=== PATIENT | male | born 1955 | race Caucasian/White ===

== ENCOUNTER → 2017-08-20 | Outpatient (CLI) | payer MEDICARE, OTHER ==
[~2017-08-20] MED LIST: ACET325 PO; ALUM320SU PO; AMLO10 PO; ASPI81CH PO; ASPI81EC PO; ATOR40TA; ATOR40TA PO; Adalat Cc30 MG PO; Azor 10-20 MG1 EACH; BP MED; Bystolic10 MG PO; CLON.1 PO; CLON.2 PO; CLON.3; CLOP75 PO; DOCU100 PO; ESZO3 PO; FAMO40 PO; FENO145 PO; FURO20 PO; FURO80 PO; Fenofibrate134 MG PO; HYDCHL25 PO; HYDRA50 PO; INSULANPEN SC; K-Dur 20 meq T20 MEQ PO; K-Dur20 MEQ PO; LEVE500 PO; LEVEMIR FL100 UNIT/1 SC; LEVSOD50 PO; LISHYD2012 PO; LISI20 PO; LISI5 PO; LORA.5 PO; LORA1SY; METF500 PO; METO50ER PO; METOPROLOL TA37.5 MG PO; Micro-K10 MEQ PO; NEBI10 PO; NEBI5 PO; NIFE10 PO; NIFE60ER PO; NIFE90ER PO; ONDA4ODT MM; OXYB5 PO; POTCHL10ER PO; POTCHL20ER PO; Pacerone100 MG PO; Q-Tussin100 MG/5 M; QUET25 PO; ROSU10TA PO; SENN187; SERT50 PO; SPIR25 PO; TEMA30 PO; TERA5; TERA5 PO; TRAM50 PO; TRAZ100 PO; TRAZ150T57 PO; Zofran Odt8 MG SL
== END | disposition home or self-care (01) ==
LOC: LAB UVN 12:54
PROVIDERS: Family Medicine
DX: A08.11 Acute gastroenteropathy due to Norwalk agent (principal)
CPT/HCPCS: 87798

== ENCOUNTER 2017-08-25 13:12 | Emergency (ER) | payer MEDICARE, OTHER ==
[~2017-08-25] VITALS: Ht 167.6 cm; Wt 78.9 kg
[~2017-08-25 13:12] MED LIST changes: -ACET325 PO; -ALUM320SU PO; -AMLO10 PO; -ATOR40TA; -Azor 10-20 MG1 EACH; -DOCU100 PO; -FENO145 PO; -Fenofibrate134 MG PO; -HYDCHL25 PO; -LORA1SY; -NEBI5 PO; -NIFE10 PO; -ONDA4ODT MM; -POTCHL10ER PO; -Pacerone100 MG PO; -Q-Tussin100 MG/5 M; -QUET25 PO; -SENN187; -SERT50 PO; -SPIR25 PO; -TERA5; -TRAM50 PO; -Zofran Odt8 MG SL
[2017-08-25] MEDS ORDERED: ATOR40TA (14:07)
[2017-08-25] MEDS ORDERED: ASPI81CH PO (14:07)
[2017-08-25] MEDS ORDERED: CLOP75 PO (14:08)
[2017-08-25] MEDS ORDERED: LORA1SY (14:09)
[2017-08-25] MEDS ORDERED: FAMO40 PO (14:09)
[2017-08-25] MEDS ORDERED: HYDCHL25 PO (14:09)
[2017-08-25] MEDS ORDERED: LEVSOD50 PO (14:09)
[2017-08-25] MEDS ORDERED: POTCHL10ER PO (14:10)
[2017-08-25] MEDS ORDERED: OXYB5 PO (14:10)
[2017-08-25] MEDS ORDERED: NIFE60ER PO (14:10)
[2017-08-25] MEDS ORDERED: SPIR25 PO (14:11)
[2017-08-25] MEDS ORDERED: QUET25 PO (14:11)
[2017-08-25] MEDS ORDERED: SENN187 (14:11)
[2017-08-25] MEDS ORDERED: TERA5 (14:11)
[2017-08-25] MEDS ORDERED: SERT50 PO (14:13)
[2017-08-25] MEDS ORDERED: LEVE500 PO (14:23)
[2017-08-25] MEDS ORDERED: NEBI5 PO (14:23)
[2017-08-25] MEDS ORDERED: LISI20 PO (14:23)
[2017-08-25] MEDS ORDERED: CLON.1 PO (14:24)
[2017-08-25] MEDS ORDERED: HYDRA50 PO (14:24)
[2017-08-25 14:52] LABS: BASOPHILS ABSOLUTE AUTO 0.03 K/mm3 (0.00-0.23); BASOPHILS PERCENT AUTO 0 % (0-2); EOSINOPHILS ABSOLUTE AUTO 0.35 K/mm3 (0.00-0.68); EOSINOPHILS PERCENT AUTO 5 % (0-6); Hematocrit 46.1 % (37.0-53.0); Hemoglobin 15.2 g/dL (13.5-17.5); IMMATURE GRAN ABSOLUTE AUTO 0.03 K/mm3 (0.00-0.10); IMMATURE GRAN PERCENT AUTO 0 % (0-1); LYMPHOCYTES ABSOLUTE AUTO 1.21 K/mm3 (0.84-5.20); LYMPHOCYTES PERCENT AUTO 16 % (21-46); MONOCYTES ABSOLUTE AUTO 0.38 K/mm3 (0.16-1.47); MONOCYTES PERCENT AUTO 5 % (4-13); Mean Corpuscular HGB 27.7 pg (26.0-34.0); Mean Corpuscular Volume 84 fL (80-100); Mean Platelet Volume 11.8 fL (9.1-12.4); NEUTROPHILS ABSOLUTE AUTO 5.57 K/mm3 (1.96-9.15); NEUTROPHILS PERCENT AUTO 74 % (41-73); Platelet Count 184 K/mm3 (150-400); RDW Coefficient Variation 15.4 % (11.7-14.2); RDW Standard Deviation 47.5 fL (35.1-46.3); Red Blood Cell Count 5.49 M/mm3 (4.30-5.90); White Blood Cell Count 7.57 K/mm3 (4.00-11.30)
[2017-08-25 14:59] LABS: Bun/Creatinine Ratio 28.2 (12.0-20.0); Calcium, Blood 9.6 mg/dL (8.5-10.1); Creatinine, Blood 1.56 mg/dL (0.60-1.20); Potassium, Blood 4.4 mmol/L (3.5-5.5)
[2017-08-25] MEDS ORDERED: Zofran Odt8 MG SL (16:21)
[2017-08-26] MEDS ORDERED: QUET25 PO (04:26)
[2017-08-26] MEDS ORDERED: TRAM50 PO (04:47)
[2018-07-15] MEDS ORDERED: Azor 10-20 MG1 EACH (00:29)
[2018-07-15] MEDS ORDERED: NEBI5 PO (00:30)
[2018-07-15] MEDS ORDERED: NIFE10 PO (00:31)
[2018-07-15] MEDS ORDERED: FENO145 PO (00:32)
[2018-07-15] MEDS ORDERED: ACET325 PO (00:36)
[2018-07-15] MEDS ORDERED: Q-Tussin100 MG/5 M (00:36)
[2018-07-15] MEDS ORDERED: DOCU100 PO (00:38)
[2018-07-15] MEDS ORDERED: ALUM320SU PO (00:39)
[2018-07-17] MEDS ORDERED: Fenofibrate134 MG PO (12:07)
[2018-07-17] MEDS ORDERED: Pacerone100 MG PO (12:12)
[2018-07-17] MEDS ORDERED: AMLO10 PO (12:13)
== END 2017-08-25 18:09 | disposition home or self-care (01) ==
LOC: ER 13:12
PROVIDERS: Emergency Medicine
DX: A08.4 Viral intestinal infection, unspecified (principal); N28.9 Disorder of kidney and ureter, unspecified; I27.20 Pulmonary hypertension, unspecified; G40.909 Epilepsy, unspecified, not intractable, without status epilepticus; E11.9 Type 2 diabetes mellitus without complications; E03.9 Hypothyroidism, unspecified; K21.9 Gastro-esophageal reflux disease without esophagitis; F32.9 Major depressive disorder, single episode, unspecified; Z88.0 Allergy status to penicillin; Z88.8 Allergy status to other drugs, medicaments and biological substances; Z79.899 Other long term (current) drug therapy; Z79.82 Long term (current) use of aspirin; Z79.02 Long term (current) use of antithrombotics/antiplatelets; Z86.73 Personal history of transient ischemic attack (TIA), and cerebral infarction without residual deficits; Z96.641 Presence of right artificial hip joint
CPT/HCPCS: 36415; 80048; 82272; 85025; 96360; 99284; J7030

== ENCOUNTER 2017-08-26 00:11 | Observation (INO) | payer MEDICARE, OTHER ==
[~2017-08-26] VITALS: Ht 170.2 cm; Wt 84.9 kg
[~2017-08-26 00:11] MED LIST changes: +ATOR40TA; +HYDCHL25 PO; +LORA1SY; +NEBI5 PO; +POTCHL10ER PO; +QUET25 PO; +SENN187; +SERT50 PO; +SPIR25 PO; +TERA5; +Zofran Odt8 MG SL
[2017-08-26 00:41] LABS: BASOPHILS ABSOLUTE AUTO 0.03 K/mm3 (0.00-0.23); BASOPHILS PERCENT AUTO 0 % (0-2); EOSINOPHILS ABSOLUTE AUTO 0.22 K/mm3 (0.00-0.68); EOSINOPHILS PERCENT AUTO 2 % (0-6); Hematocrit 44.7 % (37.0-53.0); Hemoglobin 15.1 g/dL (13.5-17.5); IMMATURE GRAN ABSOLUTE AUTO 0.02 K/mm3 (0.00-0.10); IMMATURE GRAN PERCENT AUTO 0 % (0-1); LYMPHOCYTES ABSOLUTE AUTO 1.19 K/mm3 (0.84-5.20); LYMPHOCYTES PERCENT AUTO 11 % (21-46); MONOCYTES ABSOLUTE AUTO 0.76 K/mm3 (0.16-1.47); MONOCYTES PERCENT AUTO 7 % (4-13); Mean Corpuscular HGB 27.6 pg (26.0-34.0); Mean Corpuscular HGB Conc 33.8 g/dL (31.5-36.5); Mean Corpuscular Volume 82 fL (80-100); Mean Platelet Volume 11.4 fL (9.1-12.4); NEUTROPHILS ABSOLUTE AUTO 8.75 K/mm3 (1.96-9.15); NEUTROPHILS PERCENT AUTO 80 % (41-73); Platelet Count 191 K/mm3 (150-400); RDW Coefficient Variation 14.8 % (11.7-14.2); RDW Standard Deviation 43.9 fL (35.1-46.3); Red Blood Cell Count 5.48 M/mm3 (4.30-5.90); White Blood Cell Count 10.97 K/mm3 (4.00-11.30)
[2017-08-26 00:52] LABS: Alanine Aminotransfer (ALT/SGP 20 U/L (12-78); Albumin, Blood 3.8 g/dL (3.4-5.0); Albumin/Globulin Ratio 0.8 (0.8-1.8); Alk Phos 103 U/L (50-136); Anion Gap 11 mmol/L (6-16); Aspartate Aminotrans (AST/SGOT 18 U/L (12-37); Bilirubin, Total 0.4 mg/dL (0.1-1.0); Blood Urea Nitrogen 34 mg/dL (8-24); Bun/Creatinine Ratio 27.6 (12.0-20.0); CO2, Blood 23 mmol/L (21-32); Chloride, Blood 106 mmol/L (98-108); Creatinine, Blood 1.23 mg/dL (0.60-1.20); Globulin, Blood 4.5 g/dL (2.2-4.0); Glomerular Filtration Rate >60 (60-); Glucose, Blood 109 mg/dL (70-99); Sodium, Blood 140 mmol/L (136-145); Total Protein, Blood 8.3 g/dL (6.4-8.2)
[2017-08-26] MEDS ORDERED: QUET25 PO (04:26)
[2017-08-26] MEDS ORDERED: TRAM50 PO (04:47)
[2017-08-26 10:16] LABS: Source, Urine Clean Catch
[2017-08-26 10:20] LABS: Bilirubin, Urine Neg (Neg); Blood, Urine Neg (Neg); Glucose Qualitative, Urine Neg (Neg); Ketones, Urine Neg (Neg); Leukocyte Esterase, Urine Neg (Neg); Nitrite, Urine Neg (Neg); Protein, Urine Neg (Neg); Urobilinogen, Urine NORM (Normal)
[2017-08-26 10:26] LABS: Appearance, Urine Clear (Clear); Color, Urine Yellow (P-Yellow)
[2017-08-26 10:38] LABS: Influenza A Negative (NEGATIVE); Influenza B Negative (NEGATIVE)
[2017-08-26 13:18] LABS: BASOPHILS ABSOLUTE AUTO 0.04 K/mm3 (0.00-0.23); BASOPHILS PERCENT AUTO 1 % (0-2); EOSINOPHILS ABSOLUTE AUTO 0.19 K/mm3 (0.00-0.68); EOSINOPHILS PERCENT AUTO 3 % (0-6); Hematocrit 39.6 % (37.0-53.0); Hemoglobin 12.9 g/dL (13.5-17.5); IMMATURE GRAN ABSOLUTE AUTO 0.01 K/mm3 (0.00-0.10); IMMATURE GRAN PERCENT AUTO 0 % (0-1); LYMPHOCYTES ABSOLUTE AUTO 1.02 K/mm3 (0.84-5.20); LYMPHOCYTES PERCENT AUTO 13 % (21-46); MONOCYTES ABSOLUTE AUTO 0.57 K/mm3 (0.16-1.47); MONOCYTES PERCENT AUTO 8 % (4-13); Mean Corpuscular HGB 27.1 pg (26.0-34.0); Mean Corpuscular HGB Conc 32.6 g/dL (31.5-36.5); Mean Corpuscular Volume 83 fL (80-100); Mean Platelet Volume 11.6 fL (9.1-12.4); NEUTROPHILS ABSOLUTE AUTO 5.76 K/mm3 (1.96-9.15); NEUTROPHILS PERCENT AUTO 76 % (41-73); Platelet Count 162 K/mm3 (150-400); RDW Coefficient Variation 15.1 % (11.7-14.2); Red Blood Cell Count 4.76 M/mm3 (4.30-5.90); White Blood Cell Count 7.59 K/mm3 (4.00-11.30)
[2017-08-26 13:35] LABS: Alanine Aminotransfer (ALT/SGP 15 U/L (12-78); Albumin, Blood 3.2 g/dL (3.4-5.0); Albumin/Globulin Ratio 0.8 (0.8-1.8); Alk Phos 86 U/L (50-136); Anion Gap 8 mmol/L (6-16); Aspartate Aminotrans (AST/SGOT 16 U/L (12-37); Bilirubin, Total 0.5 mg/dL (0.1-1.0); Blood Urea Nitrogen 23 mg/dL (8-24); Bun/Creatinine Ratio 23.1 (12.0-20.0); CO2, Blood 24 mmol/L (21-32); Calcium, Blood 8.2 mg/dL (8.5-10.1); Chloride, Blood 110 mmol/L (98-108); Globulin, Blood 3.8 g/dL (2.2-4.0); Glomerular Filtration Rate >60 (60-); Glucose, Blood 108 mg/dL (70-99); Potassium, Blood 4.1 mmol/L (3.5-5.5); Sodium, Blood 142 mmol/L (136-145)
[2017-08-27 04:08] LABS: BASOPHILS ABSOLUTE AUTO 0.05 K/mm3 (0.00-0.23); BASOPHILS PERCENT AUTO 1 % (0-2); EOSINOPHILS ABSOLUTE AUTO 0.33 K/mm3 (0.00-0.68); EOSINOPHILS PERCENT AUTO 5 % (0-6); Hematocrit 37.3 % (37.0-53.0); IMMATURE GRAN ABSOLUTE AUTO 0.02 K/mm3 (0.00-0.10); IMMATURE GRAN PERCENT AUTO 0 % (0-1); LYMPHOCYTES ABSOLUTE AUTO 1.55 K/mm3 (0.84-5.20); LYMPHOCYTES PERCENT AUTO 22 % (21-46); MONOCYTES ABSOLUTE AUTO 0.61 K/mm3 (0.16-1.47); MONOCYTES PERCENT AUTO 9 % (4-13); Mean Corpuscular HGB 27.1 pg (26.0-34.0); Mean Corpuscular HGB Conc 32.2 g/dL (31.5-36.5); Mean Corpuscular Volume 84 fL (80-100); Mean Platelet Volume 11.8 fL (9.1-12.4); NEUTROPHILS ABSOLUTE AUTO 4.57 K/mm3 (1.96-9.15); NEUTROPHILS PERCENT AUTO 64 % (41-73); Platelet Count 155 K/mm3 (150-400); RDW Coefficient Variation 15.2 % (11.7-14.2); RDW Standard Deviation 46.8 fL (35.1-46.3); Red Blood Cell Count 4.42 M/mm3 (4.30-5.90); White Blood Cell Count 7.13 K/mm3 (4.00-11.30)
[2017-08-27 04:20] LABS: Anion Gap 7 mmol/L (6-16); Blood Urea Nitrogen 19 mg/dL (8-24); Bun/Creatinine Ratio 19.5 (12.0-20.0); CO2, Blood 24 mmol/L (21-32); Calcium, Blood 8.3 mg/dL (8.5-10.1); Chloride, Blood 107 mmol/L (98-108); Creatinine, Blood 0.98 mg/dL (0.60-1.20); Glomerular Filtration Rate >60 (60-); Glucose, Blood 84 mg/dL (70-99); Potassium, Blood 3.9 mmol/L (3.5-5.5); Sodium, Blood 138 mmol/L (136-145)
[2017-08-27] MEDS ORDERED: ONDA4ODT MM (09:38)
[2018-07-15] MEDS ORDERED: Azor 10-20 MG1 EACH (00:29)
[2018-07-15] MEDS ORDERED: NEBI5 PO (00:30)
[2018-07-15] MEDS ORDERED: NIFE10 PO (00:31)
[2018-07-15] MEDS ORDERED: FENO145 PO (00:32)
[2018-07-15] MEDS ORDERED: Q-Tussin100 MG/5 M (00:36)
[2018-07-15] MEDS ORDERED: ACET325 PO (00:36)
[2018-07-15] MEDS ORDERED: DOCU100 PO (00:38)
[2018-07-15] MEDS ORDERED: ALUM320SU PO (00:39)
[2018-07-17] MEDS ORDERED: Fenofibrate134 MG PO (12:07)
[2018-07-17] MEDS ORDERED: Pacerone100 MG PO (12:12)
[2018-07-17] MEDS ORDERED: AMLO10 PO (12:13)
== END 2017-08-28 13:25 ==
LOC: ER 00:11 → MEDS 00:12 → ICUW 00:12 → ICUE 00:12 → MEDS 00:12 → ICUE 02:05 → MEDS 02:05 → ICUW 02:05 → ER 02:05 → ICUE 03:00 → ICUW 03:00 → ICUE 14:29 → MEDS 15:54 → ICUE 15:54 → ENPENDDIS 08-27 09:23 → EDPENDDIS 08-27 09:23 → EDPENDDISDT 08-28 08:32 → EDPENDDISTM 08-28 08:32 → MEDS 08-28 13:25
PROVIDERS: Emergency Medicine; Internal Medicine
DX: R11.2 Nausea with vomiting, unspecified (principal); I16.0 Hypertensive urgency; G40.909 Epilepsy, unspecified, not intractable, without status epilepticus; I11.9 Hypertensive heart disease without heart failure; I42.2 Other hypertrophic cardiomyopathy; E11.9 Type 2 diabetes mellitus without complications; N40.0 Benign prostatic hyperplasia without lower urinary tract symptoms; E78.5 Hyperlipidemia, unspecified; E86.0 Dehydration; I69.354 Hemiplegia and hemiparesis following cerebral infarction affecting left non-dominant side; G93.40 Encephalopathy, unspecified; N17.9 Acute kidney failure, unspecified; R74.8 Abnormal levels of other serum enzymes; E03.9 Hypothyroidism, unspecified; K21.9 Gastro-esophageal reflux disease without esophagitis; F32.9 Major depressive disorder, single episode, unspecified; Z79.82 Long term (current) use of aspirin; Z79.01 Long term (current) use of anticoagulants; Z88.8 Allergy status to other drugs, medicaments and biological substances; Z79.899 Other long term (current) drug therapy
CPT/HCPCS: 36415; 70450; 71010; 74176; 80048; 80053; 81003; 82272; 83605; 83690; 84145; 85025; 87804; 93005; 93010; 94762; 96361; 96374; 96375; 96376; 99285; C9113; G0378; J1650; J1953; J2405; J7030

== ENCOUNTER → 2017-10-15 | Outpatient (CLI) | payer MEDICARE, OTHER ==
[~2017-10-15] MED LIST changes: +ACET325 PO; +ALUM320SU PO; +AMLO10 PO; +Azor 10-20 MG1 EACH; +DOCU100 PO; +FENO145 PO; +Fenofibrate134 MG PO; +NIFE10 PO; +ONDA4ODT MM; +Pacerone100 MG PO; +Q-Tussin100 MG/5 M; +TRAM50 PO
[2017-10-15 16:07] LABS: Influenza A Negative (NEGATIVE); Influenza B Negative (NEGATIVE)
== END ==
LOC: LAB UVN 13:23
PROVIDERS: Family Medicine
DX: J11.2 Influenza due to unidentified influenza virus with gastrointestinal manifestations (principal)
CPT/HCPCS: 87804

== ENCOUNTER 2018-10-11 19:31 | Emergency (ER) | payer MEDICARE, OTHER ==
[~2018-10-11] VITALS: Ht 170.2 cm; Wt 113.4 kg
[2018-10-11 20:41] LABS: BASOPHILS ABSOLUTE AUTO 0.08 K/mm3 (0.00-0.23); BASOPHILS PERCENT AUTO 1 % (0-2); EOSINOPHILS ABSOLUTE AUTO 0.35 K/mm3 (0.00-0.68); EOSINOPHILS PERCENT AUTO 6 % (0-6); Hematocrit 47.1 % (37.0-53.0); Hemoglobin 15.5 g/dL (13.5-17.5); IMMATURE GRAN ABSOLUTE AUTO 0.05 K/mm3 (0.00-0.10); IMMATURE GRAN PERCENT AUTO 1 % (0-1); LYMPHOCYTES ABSOLUTE AUTO 1.34 K/mm3 (0.84-5.20); LYMPHOCYTES PERCENT AUTO 22 % (21-46); MONOCYTES ABSOLUTE AUTO 0.45 K/mm3 (0.16-1.47); MONOCYTES PERCENT AUTO 7 % (4-13); Mean Corpuscular HGB 28.5 pg (26.0-34.0); Mean Corpuscular HGB Conc 32.9 g/dL (31.5-36.5); Mean Corpuscular Volume 87 fL (80-100); Mean Platelet Volume 12.2 fL (9.1-12.4); NEUTROPHILS PERCENT AUTO 63 % (41-73); Platelet Count 139 K/mm3 (150-400); RDW Coefficient Variation 13.8 % (11.7-14.2); RDW Standard Deviation 43.4 fL (35.1-46.3); Red Blood Cell Count 5.44 M/mm3 (4.30-5.90); White Blood Cell Count 6.07 K/mm3 (4.00-11.30)
[2018-10-11 20:57] LABS: Albumin, Blood 3.8 g/dL (3.4-5.0); Bilirubin, Total 0.3 mg/dL (0.1-1.0); Calcium, Blood 9.1 mg/dL (8.5-10.1); Creatinine, Blood 1.4 mg/dL (0.60-1.20); Potassium, Blood 4.2 mmol/L (3.5-5.5); Total Protein, Blood 7.8 g/dL (6.4-8.2)
== END 2018-10-12 00:11 | disposition home or self-care (01) ==
LOC: ER 19:31
PROVIDERS: Emergency Medicine
DX: K92.0 Hematemesis (principal); E78.5 Hyperlipidemia, unspecified; E11.9 Type 2 diabetes mellitus without complications; I10 Essential (primary) hypertension; E03.9 Hypothyroidism, unspecified; K21.9 Gastro-esophageal reflux disease without esophagitis; I48.91 Unspecified atrial fibrillation; Z86.73 Personal history of transient ischemic attack (TIA), and cerebral infarction without residual deficits; Z79.899 Other long term (current) drug therapy; Z79.82 Long term (current) use of aspirin
CPT/HCPCS: 80053; 85025; 99283

== ENCOUNTER 2018-12-03 12:40 | Emergency (ER) | payer MEDICARE, OTHER ==
[~2018-12-03] VITALS: Ht 167.6 cm; Wt 120.2 kg
[2018-12-03 12:58] LABS: BASOPHILS ABSOLUTE AUTO 0.07 K/mm3 (0.00-0.23); BASOPHILS PERCENT AUTO 1 % (0-2); EOSINOPHILS ABSOLUTE AUTO 0.34 K/mm3 (0.00-0.68); EOSINOPHILS PERCENT AUTO 5 % (0-6); Hematocrit 46.2 % (37.0-53.0); Hemoglobin 15.3 g/dL (13.5-17.5); IMMATURE GRAN ABSOLUTE AUTO 0.04 K/mm3 (0.00-0.10); IMMATURE GRAN PERCENT AUTO 1 % (0-1); LYMPHOCYTES ABSOLUTE AUTO 1.19 K/mm3 (0.84-5.20); LYMPHOCYTES PERCENT AUTO 18 % (21-46); MONOCYTES ABSOLUTE AUTO 0.52 K/mm3 (0.16-1.47); MONOCYTES PERCENT AUTO 8 % (4-13); Mean Corpuscular HGB 28.1 pg (26.0-34.0); Mean Corpuscular HGB Conc 33.1 g/dL (31.5-36.5); Mean Corpuscular Volume 85 fL (80-100); Mean Platelet Volume 12.1 fL (9.1-12.4); NEUTROPHILS ABSOLUTE AUTO 4.45 K/mm3 (1.96-9.15); NEUTROPHILS PERCENT AUTO 67 % (41-73); Platelet Count 134 K/mm3 (150-400); RDW Coefficient Variation 14.3 % (11.7-14.2); RDW Standard Deviation 43.5 fL (35.1-46.3); Red Blood Cell Count 5.45 M/mm3 (4.30-5.90); White Blood Cell Count 6.61 K/mm3 (4.00-11.30)
[2018-12-03 13:52] LABS: International Normalized Ratio 1.02; Prothrombin Time Results 10.8 Sec (9.7-11.5)
[2018-12-03 14:12] LABS: Alanine Aminotransfer (ALT/SGP 47 U/L (12-78); Albumin, Blood 3.5 g/dL (3.4-5.0); Alk Phos 41 U/L (50-136); Anion Gap 10 mmol/L (6-16); Aspartate Aminotrans (AST/SGOT 40 U/L (12-37); Bilirubin, Total 0.3 mg/dL (0.1-1.0); Blood Urea Nitrogen 17 mg/dL (8-24); Bun/Creatinine Ratio 13.4 (12.0-20.0); CO2, Blood 22 mmol/L (21-32); Calcium, Blood 8.3 mg/dL (8.5-10.1); Chloride, Blood 109 mmol/L (98-108); Creatinine, Blood 1.27 mg/dL (0.60-1.20); Ethanol (Alcohol), Blood, Med <3 mg/dL; Globulin, Blood 3.5 g/dL (2.2-4.0); Glomerular Filtration Rate >60 (60-); Glucose, Blood 137 mg/dL (70-99); Potassium, Blood 3.9 mmol/L (3.5-5.5); Sodium, Blood 141 mmol/L (136-145); Troponin I <0.015 ng/mL (0.000-0.040)
== END 2018-12-03 17:05 | disposition home or self-care (01) ==
LOC: ER 12:40
PROVIDERS: Emergency Medicine
DX: G45.9 Transient cerebral ischemic attack, unspecified (principal); R47.1 Dysarthria and anarthria; E78.5 Hyperlipidemia, unspecified; E11.9 Type 2 diabetes mellitus without complications; I10 Essential (primary) hypertension; E03.9 Hypothyroidism, unspecified; K21.9 Gastro-esophageal reflux disease without esophagitis; I48.91 Unspecified atrial fibrillation; Z88.0 Allergy status to penicillin; Z88.8 Allergy status to other drugs, medicaments and biological substances; Z79.899 Other long term (current) drug therapy; Z79.82 Long term (current) use of aspirin
CPT/HCPCS: 36415; 70450; 70496; 70498; 80053; 84484; 85025; 85610; 85730; 93005; 93010; 99285-25; G0480; Q9967

== ENCOUNTER → 2019-01-16 | Outpatient (CLI) | payer MEDICARE, OTHER ==
[~2019-01-16] MED LIST changes: +FENO160 PO; -Fenofibrate134 MG PO; -SPIR25 PO; +SPIR50 PO; +Vitamin D2000 UNIT PO
[2019-01-16 06:02] LABS: Bilirubin, Urine Neg (Neg); Blood, Urine Neg (Neg); Glucose Qualitative, Urine Neg (Neg); Ketones, Urine 1+ (Neg); Leukocyte Esterase, Urine 1+ (Neg); Nitrite, Urine Neg (Neg); Protein, Urine 2+ (Neg); Urobilinogen, Urine NORM (Normal)
[2019-01-16 06:13] LABS: Appearance, Urine Clear (Clear); Color, Urine Yellow (P-Yellow)
[2019-01-16 06:14] LABS: Hyaline Casts 0-2 /lpf (0-2)
[2019-01-16 06:16] LABS: Bacteria Rare /hpf; Red Blood Cells, Urine 0-2 /hpf (0-2); Squamous Epithelial Cells Rare /hpf (Few)
== END ==
LOC: LAB RH 00:25 → EDSTATUS 10:35
DX: N39.0 Urinary tract infection, site not specified (principal)
CPT/HCPCS: 81001; 87086

== ENCOUNTER → 2019-01-17 | Outpatient (CLI) | payer MEDICARE, OTHER ==
[2019-01-17 02:58] LABS: Adenovirus F 40/41 Not Detected (NOT DETECT); Astrovirus Not Detected (NOT DETECT); Campylobacter Sp Not Detected (NOT DETECT); Cryptosporidium Not Detected (NOT DETECT); Cyclospora Cayetanensis Not Detected (NOT DETECT); E. Coli O157 Not Detected (NOT DETECT); Entamoeba Histolytica Not Detected (NOT DETECT); Enteroaggregative E. coli-EAEC Not Detected (NOT DETECT); Enteropathogenic E. coli-EPEC Not Detected (NOT DETECT); Enterotoxigenic E. coli-ETEC Not Detected (NOT DETECT); Giardia Lamblia Not Detected (NOT DETECT); Norovirus GI/GII Not Detected (NOT DETECT); Plesiomonas Shigelloides Not Detected (NOT DETECT); Rotavirus A Not Detected (NOT DETECT); Salmonella Sp Not Detected (NOT DETECT); Sapovirus Not Detected (NOT DETECT); Shiga Toxin-prod E. coli-STEC Not Detected (NOT DETECT); Shigella/Enteroin E. coli-EIEC Not Detected (NOT DETECT); Vibrio Cholerae Not Detected (NOT DETECT); Vibrio Sp Not Detected (NOT DETECT); Yersinia Enterocolitica Not Detected (NOT DETECT)
== END | disposition home or self-care (01) ==
LOC: LAB RH 01:00 → EDSTATUS 10:36
PROVIDERS: Registered Nurse
DX: K22.6 Gastro-esophageal laceration-hemorrhage syndrome (principal)
CPT/HCPCS: 87507

== ENCOUNTER 2019-03-10 21:50 | Emergency (ER) | payer MEDICARE, OTHER ==
[~2019-03-10] VITALS: Ht 170.2 cm; Wt 113.4 kg
[~2019-03-10 21:50] MED LIST changes: -Vitamin D2000 UNIT PO
[2019-03-10] MEDS ORDERED: Vitamin D2000 UNIT PO (22:10)
== END 2019-03-10 23:58 | disposition home or self-care (01) ==
LOC: ER 21:50
DX: S00.81XA Abrasion of other part of head, initial encounter (principal); S60.511A Abrasion of right hand, initial encounter; S80.211A Abrasion, right knee, initial encounter; W19.XXXA Unspecified fall, initial encounter; Z88.0 Allergy status to penicillin; Z88.8 Allergy status to other drugs, medicaments and biological substances; Z79.899 Other long term (current) drug therapy; Z79.82 Long term (current) use of aspirin; E11.9 Type 2 diabetes mellitus without complications; I10 Essential (primary) hypertension; E03.9 Hypothyroidism, unspecified; K21.9 Gastro-esophageal reflux disease without esophagitis; F32.9 Major depressive disorder, single episode, unspecified
CPT/HCPCS: 70450; 93005; 93010; 99284-25

== ENCOUNTER → 2019-04-26 | Outpatient (CLI) | payer MEDICARE, OTHER ==
[~2019-04-26] MED LIST changes: +Vitamin D2000 UNIT PO
[2019-04-26 10:57] LABS: Bilirubin, Urine Neg (Neg); Blood, Urine 1+ (Neg); Glucose Qualitative, Urine Neg (Neg); Ketones, Urine Neg (Neg); Leukocyte Esterase, Urine Neg (Neg); Nitrite, Urine Neg (Neg); Protein, Urine 1+ (Neg); Urobilinogen, Urine NORM (Normal)
[2019-04-26 11:07] LABS: Appearance, Urine Clear (Clear); Bacteria Not Seen /hpf; Color, Urine Yellow (P-Yellow); Red Blood Cells, Urine Rare /hpf (0-2); Squamous Epithelial Cells Not Seen /hpf (Few); White Blood Cells, Urine Not Seen /hpf (0-5)
== END ==
LOC: LAB RH 10:00 → EDSTATUS 13:39
PROVIDERS: Nurse Practitioner Family
DX: N39.0 Urinary tract infection, site not specified (principal)
CPT/HCPCS: 81001

== ENCOUNTER 2019-07-19 04:41 | Emergency (ER) | payer MEDICARE, OTHER ==
[~2019-07-19] VITALS: Ht 170.2 cm; Wt 113.4 kg
[2019-07-19] MEDS ORDERED: AMLO5 PO (04:52)
[2019-07-19] MEDS ORDERED: FAMO40 PO (04:52)
[2019-07-19] MEDS ORDERED: Aldactone100 MG PO (04:52)
[2019-07-19] MEDS ORDERED: Amiodarone HCl200 MG PO (04:52)
[2019-07-19] MEDS ORDERED: ASPI81CH PO (04:52)
[2019-07-19] MEDS ORDERED: NEBI10 PO (04:52)
[2019-07-19] MEDS ORDERED: LISI20 PO (04:53)
[2019-07-19] MEDS ORDERED: FENO160 PO (04:53)
[2019-07-19] MEDS ORDERED: CLOP75 PO (04:53)
[2019-07-19] MEDS ORDERED: OXYB5 PO (04:53)
[2019-07-19] MEDS ORDERED: LEVSOD50 PO (04:54)
[2019-07-19] MEDS ORDERED: SERT25 PO (04:54)
[2019-07-19] MEDS ORDERED: Seroquel Xr50 MG PO (04:54)
[2019-07-19] MEDS ORDERED: METF500C PO (04:55)
[2019-07-19] MEDS ORDERED: DOCU100 PO (04:55)
[2019-07-19] MEDS ORDERED: VITAMIN D33000 UNI1 PO (04:55)
[2019-07-19] MEDS ORDERED: LEVE500 PO (04:55)
[2019-07-19] MEDS ORDERED: POTCHL20ER PO (04:56)
[2019-07-19] MEDS ORDERED: CLON.2 PO (04:57)
[2019-07-19] MEDS ORDERED: Zofran4 MG PO (04:58)
[2019-07-19] MEDS ORDERED: ACET325 PO (04:58)
[2019-07-19 05:16] LABS: BASOPHILS ABSOLUTE AUTO 0.11 K/mm3 (0.00-0.23); BASOPHILS PERCENT AUTO 1 % (0-2); EOSINOPHILS ABSOLUTE AUTO 0.24 K/mm3 (0.00-0.68); EOSINOPHILS PERCENT AUTO 2 % (0-6); Hematocrit 51.2 % (37.0-53.0); Hemoglobin 17.2 g/dL (13.5-17.5); IMMATURE GRAN ABSOLUTE AUTO 0.08 K/mm3 (0.00-0.10); IMMATURE GRAN PERCENT AUTO 1 % (0-1); LYMPHOCYTES ABSOLUTE AUTO 1.19 K/mm3 (0.84-5.20); LYMPHOCYTES PERCENT AUTO 10 % (21-46); MONOCYTES PERCENT AUTO 7 % (4-13); Mean Corpuscular HGB 28.3 pg (26.0-34.0); Mean Corpuscular HGB Conc 33.6 g/dL (31.5-36.5); Mean Corpuscular Volume 84 fL (80-100); Mean Platelet Volume 11.3 fL (9.1-12.4); NEUTROPHILS ABSOLUTE AUTO 9.71 K/mm3 (1.96-9.15); NEUTROPHILS PERCENT AUTO 79 % (41-73); Platelet Count 176 K/mm3 (150-400); RDW Coefficient Variation 14.6 % (11.7-14.2); RDW Standard Deviation 44.6 fL (35.1-46.3); Red Blood Cell Count 6.08 M/mm3 (4.30-5.90); White Blood Cell Count 12.23 K/mm3 (4.00-11.30)
[2019-07-19 05:55] LABS: Alanine Aminotransfer (ALT/SGP 45 U/L (12-78); Albumin, Blood 4.1 g/dL (3.4-5.0); Albumin/Globulin Ratio 0.9 (0.8-1.8); Alk Phos 57 U/L (50-136); Anion Gap 8 mmol/L (6-16); Aspartate Aminotrans (AST/SGOT 37 U/L (12-37); Bilirubin, Total 0.7 mg/dL (0.1-1.0); Blood Urea Nitrogen 14 mg/dL (8-24); Bun/Creatinine Ratio 11.6 (12.0-20.0); CO2, Blood 26 mmol/L (21-32); Calcium, Blood 9.6 mg/dL (8.5-10.1); Chloride, Blood 105 mmol/L (98-108); Creatinine, Blood 1.21 mg/dL (0.60-1.20); Globulin, Blood 4.7 g/dL (2.2-4.0); Glomerular Filtration Rate >60 (60-); Glucose, Blood 174 mg/dL (70-99); Potassium, Blood 3.6 mmol/L (3.5-5.5); Sodium, Blood 139 mmol/L (136-145); Total Protein, Blood 8.8 g/dL (6.4-8.2)
[2019-07-19 05:56] LABS: Troponin I <0.015 ng/mL (0.000-0.040)
[2019-07-19 08:17] LABS: Source, Urine Catheter
[2019-07-19 08:20] LABS: Appearance, Urine Clear (Clear); Bilirubin, Urine Neg (Neg); Blood, Urine 2+ (Neg); Color, Urine Yellow (P-Yellow); Glucose Qualitative, Urine 1+ (Neg); Ketones, Urine Neg (Neg); Leukocyte Esterase, Urine Neg (Neg); Nitrite, Urine Neg (Neg); Protein, Urine 3+ (Neg); Urobilinogen, Urine NORM (Normal)
[2019-07-19 08:29] LABS: Bacteria Not Seen /hpf; Squamous Epithelial Cells Not Seen /hpf (Few); White Blood Cells, Urine 0-2 /hpf (0-5)
[2019-07-19] MEDS ORDERED: Toprol Xl25 MG PO (12:38)
== END 2019-07-19 13:33 | disposition home or self-care (01) ==
LOC: ER 04:41
PROVIDERS: Emergency Medicine
DX: I11.9 Hypertensive heart disease without heart failure (principal); R11.2 Nausea with vomiting, unspecified; R10.30 Lower abdominal pain, unspecified; G81.94 Hemiplegia, unspecified affecting left nondominant side; E11.9 Type 2 diabetes mellitus without complications; E03.9 Hypothyroidism, unspecified; K21.9 Gastro-esophageal reflux disease without esophagitis; F32.9 Major depressive disorder, single episode, unspecified; E78.5 Hyperlipidemia, unspecified; G47.30 Sleep apnea, unspecified; Z88.0 Allergy status to penicillin; Z88.8 Allergy status to other drugs, medicaments and biological substances; Z79.84 Long term (current) use of oral hypoglycemic drugs; Z79.899 Other long term (current) drug therapy; Z79.82 Long term (current) use of aspirin; Z79.02 Long term (current) use of antithrombotics/antiplatelets
CPT/HCPCS: 51701; 71046; 74177; 80053; 81001; 83880; 84484; 85025; 93005; 93010; 96361-59; 96374-59; 96375-59; 96376; 99285-25; J0282; J7030; J7060; Q9967

== ENCOUNTER 2019-07-20 00:09 | Inpatient (IN) | payer MEDICARE, OTHER ==
[~2019-07-20] VITALS: Ht 170.2 cm; Wt 113.4 kg
[~2019-07-20 00:09] MED LIST changes: +AMLO5 PO; +Aldactone100 MG PO; +Amiodarone HCl200 MG PO; +METF500C PO; +SERT25 PO; +Seroquel Xr50 MG PO; +Toprol Xl25 MG PO; +VITAMIN D33000 UNI1 PO; +Zofran4 MG PO
[2019-07-20 00:39] LABS: BASOPHILS ABSOLUTE AUTO 0.09 K/mm3 (0.00-0.23); BASOPHILS PERCENT AUTO 1 % (0-2); EOSINOPHILS ABSOLUTE AUTO 0.17 K/mm3 (0.00-0.68); EOSINOPHILS PERCENT AUTO 1 % (0-6); Hematocrit 53.4 % (37.0-53.0); Hemoglobin 17.8 g/dL (13.5-17.5); IMMATURE GRAN ABSOLUTE AUTO 0.07 K/mm3 (0.00-0.10); IMMATURE GRAN PERCENT AUTO 1 % (0-1); LYMPHOCYTES ABSOLUTE AUTO 2.02 K/mm3 (0.84-5.20); LYMPHOCYTES PERCENT AUTO 15 % (21-46); MONOCYTES ABSOLUTE AUTO 1.12 K/mm3 (0.16-1.47); MONOCYTES PERCENT AUTO 9 % (4-13); Mean Corpuscular HGB 28.3 pg (26.0-34.0); Mean Corpuscular HGB Conc 33.3 g/dL (31.5-36.5); Mean Corpuscular Volume 85 fL (80-100); Mean Platelet Volume 11.5 fL (9.1-12.4); NEUTROPHILS ABSOLUTE AUTO 9.76 K/mm3 (1.96-9.15); NEUTROPHILS PERCENT AUTO 74 % (41-73); Platelet Count 209 K/mm3 (150-400); RDW Coefficient Variation 14.6 % (11.7-14.2); RDW Standard Deviation 45.8 fL (35.1-46.3); Red Blood Cell Count 6.28 M/mm3 (4.30-5.90); White Blood Cell Count 13.23 K/mm3 (4.00-11.30)
[2019-07-20 01:03] LABS: Troponin I 0.019 ng/mL (0.000-0.040)
[2019-07-20 01:05] LABS: Alanine Aminotransfer (ALT/SGP 43 U/L (12-78); Albumin, Blood 3.9 g/dL (3.4-5.0); Albumin/Globulin Ratio 0.8 (0.8-1.8); Alk Phos 51 U/L (50-136); Anion Gap 8 mmol/L (6-16); Aspartate Aminotrans (AST/SGOT 31 U/L (12-37); Bilirubin, Total 0.5 mg/dL (0.1-1.0); Blood Urea Nitrogen 12 mg/dL (8-24); Bun/Creatinine Ratio 10.2 (12.0-20.0); CO2, Blood 25 mmol/L (21-32); Calcium, Blood 9.5 mg/dL (8.5-10.1); Chloride, Blood 106 mmol/L (98-108); Creatinine, Blood 1.18 mg/dL (0.60-1.20); Globulin, Blood 4.9 g/dL (2.2-4.0); Glomerular Filtration Rate >60 (60-); Glucose, Blood 178 mg/dL (70-99); Potassium, Blood 3.5 mmol/L (3.5-5.5); Sodium, Blood 139 mmol/L (136-145); Total Protein, Blood 8.8 g/dL (6.4-8.2)
[2019-07-20 04:28] LABS: Source, Urine Clean Catch
[2019-07-20 04:31] LABS: Bilirubin, Urine Neg (Neg); Blood, Urine 5+ (Neg); Glucose Qualitative, Urine 2+ (Neg); Ketones, Urine 2+ (Neg); Leukocyte Esterase, Urine 1+ (Neg); Nitrite, Urine Neg (Neg); Protein, Urine 4+ (Neg); Urobilinogen, Urine NORM (Normal)
[2019-07-20 04:47] LABS: Color, Urine Amber (P-Yellow)
[2019-07-20 04:48] LABS: Amorphous Heavy (0-Heavy); Appearance, Urine Hazy (Clear); Bacteria Few /hpf; Squamous Epithelial Cells Rare /hpf (Few); White Blood Cells, Urine 0-2 /hpf (0-5)
--- NOTE | 2019-07-20 07:43 | NUR ---
HEART RHYTHM IRREGULAR, CHECKED WITH TELE MONITOR WHO SAID HE WAS NOW IN AFIB IN THE 130'S. PRIMARY RN ESTRADA INFORMED.
--- NOTE | 2019-07-20 16:18 | NUR ---
SHIFT SUMMARY: PT HAS BEEN A/O X 4 WITH MOMENTS OF FORGETFULLNESS. PT DENIES ANY NAUSEA. HIS HEART RATE HAS BEEN ELEVATED IN THE HIGH TEENS TO 120'S AND PER BREAK UP WORKER HE HAS BEEN IN A-FIB ALL DAY. DR GRIGSBY IS AWARE AND HAS MADE SOME ADJUSTMENTS TO HIS MEDS REFLECTED ON THE OCT. PT REPORTS HAVING CHRONIC A-FIB BUT HAS BEEN ASYMPTOMATIC SINCE HIS ARRIVAL THIS MORNING. PT HAS SOME OLD HEALED SCARS ON BOTH OF HIS HIPS AND EXCORIATION TO HIS BUTTOCKS AND BARRIER CREAM WAS APPLIED WITH BRIEF CHANGE. PT HAS BEEN INC OF BLADDER SINCE HIS ARRIVAL. HE IS ABLE TO MAKE HIS NEEDS KNOWN AND HAS HIS CALL LIGHT IN REACH.
--- NOTE | 2019-07-21 07:29 | NUR ---
SHIFT SUMMARY: A/O X 4. MAKING NEEDS KNOWN. SLEPT HARD. SNORING LOUDLY. HOB ELEVATED 30 DEGREES. DENIES N/V. DENIES PAIN. NO BM DURING THE NIGHT. CALMOSEPTINE ON REDENED AREAS ON BILATERAL HIP AND BUTTOCKS. BED LOW, CALL BUTTON IN REACH ON RIGHT SIDE.
[2019-07-21 09:20] LABS: Alanine Aminotransfer (ALT/SGP 36 U/L (12-78); Albumin, Blood 3.2 g/dL (3.4-5.0); Albumin/Globulin Ratio 0.9 (0.8-1.8); Alk Phos 38 U/L (50-136); Anion Gap 10 mmol/L (6-16); Aspartate Aminotrans (AST/SGOT 19 U/L (12-37); Bilirubin, Total 0.4 mg/dL (0.1-1.0); Blood Urea Nitrogen 11 mg/dL (8-24); Bun/Creatinine Ratio 9.2 (12.0-20.0); CO2, Blood 22 mmol/L (21-32); Calcium, Blood 8.4 mg/dL (8.5-10.1); Chloride, Blood 110 mmol/L (98-108); Globulin, Blood 3.7 g/dL (2.2-4.0); Glomerular Filtration Rate >60 (60-); Glucose, Blood 141 mg/dL (70-99); Potassium, Blood 3.7 mmol/L (3.5-5.5); Sodium, Blood 142 mmol/L (136-145); Total Protein, Blood 6.9 g/dL (6.4-8.2)
[2019-07-21 10:16] LABS: BASOPHILS ABSOLUTE AUTO 0.06 K/mm3 (0.00-0.23); BASOPHILS PERCENT AUTO 1 % (0-2); EOSINOPHILS ABSOLUTE AUTO 0.26 K/mm3 (0.00-0.68); EOSINOPHILS PERCENT AUTO 3 % (0-6); Hematocrit 43.9 % (37.0-53.0); Hemoglobin 14.4 g/dL (13.5-17.5); IMMATURE GRAN ABSOLUTE AUTO 0.03 K/mm3 (0.00-0.10); IMMATURE GRAN PERCENT AUTO 0 % (0-1); LYMPHOCYTES PERCENT AUTO 13 % (21-46); MONOCYTES ABSOLUTE AUTO 0.58 K/mm3 (0.16-1.47); MONOCYTES PERCENT AUTO 7 % (4-13); Mean Corpuscular HGB 28.5 pg (26.0-34.0); Mean Corpuscular HGB Conc 32.8 g/dL (31.5-36.5); Mean Corpuscular Volume 87 fL (80-100); Mean Platelet Volume 11.7 fL (9.1-12.4); NEUTROPHILS ABSOLUTE AUTO 6.15 K/mm3 (1.96-9.15); NEUTROPHILS PERCENT AUTO 75 % (41-73); Platelet Count 134 K/mm3 (150-400); RDW Coefficient Variation 14.9 % (11.7-14.2); RDW Standard Deviation 47.8 fL (35.1-46.3); Red Blood Cell Count 5.06 M/mm3 (4.30-5.90); White Blood Cell Count 8.18 K/mm3 (4.00-11.30)
[2019-07-21 16:08] LABS: Adenovirus Not Detected (NOT DETECT); Bordetella pertussis Not Detected (NOT DETECT); Chlamydophila pneumoniae Not Detected (NOT DETECT); Coronavirus 229E Not Detected (NOT DETECT); Coronavirus HKU1 Not Detected (NOT DETECT); Coronavirus NL63 Not Detected (NOT DETECT); Coronavirus OC43 Not Detected (NOT DETECT); Human Metapneumovirus Not Detected (NOT DETECT); Human Rhinovirus/Enterovirus Not Detected (NOT DETECT); Influenza A Not Detected (NOT DETECT); Influenza A/2009-H1 Not Detected (NOT DETECT); Influenza A/H1 Not Detected (NOT DETECT); Influenza A/H3 Not Detected (NOT DETECT); Influenza B Not Detected (NOT DETECT); Mycoplasma pneumoniae Not Detected (NOT DETECT); Parainfluenza Virus 1 Not Detected (NOT DETECT); Parainfluenza Virus 2 Not Detected (NOT DETECT); Parainfluenza Virus 3 Not Detected (NOT DETECT); Parainfluenza Virus 4 Not Detected (NOT DETECT); Respiratory Syncytial Virus Not Detected (NOT DETECT)
--- NOTE | 2019-07-21 16:10 | NUR ---
SHIFT SUMMARY: PT HAS BEEN VERY DROWSY TODAY BUT WAS ABLE TO WAKE UP FOR MOMENTS AND ANSWERS AT BASELINE. HE DENIES ANY PAIN. HE WAS ABLE TO TAKE HIS MEDS WHOLE WITH WATER AND HIS BREAKFAST THIS MORNING. COMMERCIAL REPRESENTATIVE REPORTS A-FLUTTER WITH A BUNDLE BRANCH BLOCK @ 97. RESPIRATORY PANEL WAS COLLECTED AND SENT TO LAB. PT WAS ABLE TO WORK WITH THERAPIES TODAY AND GOT UP TO THE CHAIR. HE REMAINS INC AND IS A X2 ASSIST FOR TOILETING AND REPOSITIONING. PT IS ABLE TO MAKE HIS NEEDS KNOWN AND IS RESTING IN BED.
[2019-07-22 00:45] LABS: Source, Urine Clean Catch
[2019-07-22 00:54] LABS: Appearance, Urine Clear (Clear); Bilirubin, Urine Neg (Neg); Blood, Urine 3+ (Neg); Color, Urine Yellow (P-Yellow); Glucose Qualitative, Urine Neg (Neg); Ketones, Urine Neg (Neg); Leukocyte Esterase, Urine Neg (Neg); Nitrite, Urine Neg (Neg); Protein, Urine Neg (Neg); Urobilinogen, Urine NORM (Normal)
[2019-07-22 01:00] LABS: Bacteria Few /hpf; Squamous Epithelial Cells Not Seen /hpf (Few); White Blood Cells, Urine 0-2 /hpf (0-5)
--- NOTE | 2019-07-22 08:09 | NUR ---
SHIFT SUMMARY PATIENT HAD NO SIGNS OF NAUSEA OR VOMITING THIS SHIFT. A STRAIGHT CATH WAS DONE IN ORDER TO OBTAIN A UA SAMPLE FROM HIM. HIS TELE MONITOR SHOWED HIM GOING BACK AND FORTH BETWEEN A FLUTTER AND A FIB. IV IN RIGHT FOREARM PATENT AND INFUSING. PATIENT ABLE TO SLEEP MOST OF THE NIGHT. BED IN LOWEST POSITION WITH WHEELS LOCKED AND ALARM ON. CALL LIGHT WITHIN REACH. REPORT GIVEN TO ONCOMING RN.
[2019-07-22 09:16] LABS: BASOPHILS ABSOLUTE AUTO 0.06 K/mm3 (0.00-0.23); BASOPHILS PERCENT AUTO 1 % (0-2); EOSINOPHILS ABSOLUTE AUTO 0.35 K/mm3 (0.00-0.68); EOSINOPHILS PERCENT AUTO 6 % (0-6); Hematocrit 43.6 % (37.0-53.0); Hemoglobin 14.4 g/dL (13.5-17.5); IMMATURE GRAN ABSOLUTE AUTO 0.05 K/mm3 (0.00-0.10); IMMATURE GRAN PERCENT AUTO 1 % (0-1); LYMPHOCYTES ABSOLUTE AUTO 1.04 K/mm3 (0.84-5.20); LYMPHOCYTES PERCENT AUTO 17 % (21-46); MONOCYTES ABSOLUTE AUTO 0.48 K/mm3 (0.16-1.47); MONOCYTES PERCENT AUTO 8 % (4-13); Mean Corpuscular HGB 28.3 pg (26.0-34.0); Mean Corpuscular Volume 86 fL (80-100); Mean Platelet Volume 11.2 fL (9.1-12.4); NEUTROPHILS ABSOLUTE AUTO 3.99 K/mm3 (1.96-9.15); NEUTROPHILS PERCENT AUTO 67 % (41-73); Platelet Count 129 K/mm3 (150-400); RDW Coefficient Variation 14.8 % (11.7-14.2); RDW Standard Deviation 47.1 fL (35.1-46.3); Red Blood Cell Count 5.08 M/mm3 (4.30-5.90); White Blood Cell Count 5.97 K/mm3 (4.00-11.30)
[2019-07-22 09:33] LABS: Anion Gap 9 mmol/L (6-16); Blood Urea Nitrogen 12 mg/dL (8-24); Bun/Creatinine Ratio 10.3 (12.0-20.0); CO2, Blood 23 mmol/L (21-32); Calcium, Blood 8.9 mg/dL (8.5-10.1); Chloride, Blood 111 mmol/L (98-108); Creatinine, Blood 1.17 mg/dL (0.60-1.20); Glomerular Filtration Rate >60 (60-); Glucose, Blood 127 mg/dL (70-99); Potassium, Blood 3.8 mmol/L (3.5-5.5); Sodium, Blood 143 mmol/L (136-145)
[2019-07-22] MEDS ORDERED: Coreg12.5 MG PO (10:58)
[2019-07-22] MEDS ORDERED: HUMALOG JU100 UNIT/1 SC (10:59)
[2019-07-22] MEDS ORDERED: Culturelle1 CAP PO (10:59)
[2019-07-22] MEDS ORDERED: LEVO750 PO (11:00)
--- NOTE | 2019-07-22 15:52 | NUR ---
REPORT TO JOE OLIVEROS ANSWER ALL QUESTIONS. PATIENT ENROUTE
--- NOTE | 2019-07-22 15:55 | NUR ---
PER ADMIT NOTE PATIENT HERE FOR N/V AND CAME IN BY HIMSELF VIA AMBULANCE. HAS NOT HAD ANY N/V ON MEDICAL FLOOR.
== END 2019-07-22 15:43 | disposition home health service (06) | DRG 309 ==
LOC: ER 00:09 → MEDS 00:10
PROVIDERS: Family Medicine; Physician Assistant; ADMIT Hospitalist
DX: I48.20 Chronic atrial fibrillation, unspecified (principal); N39.0 Urinary tract infection, site not specified; I69.954 Hemiplegia and hemiparesis following unspecified cerebrovascular disease affecting left non-dominant side; Z79.01 Long term (current) use of anticoagulants; E78.5 Hyperlipidemia, unspecified; E03.9 Hypothyroidism, unspecified; I10 Essential (primary) hypertension; K21.9 Gastro-esophageal reflux disease without esophagitis; F32.9 Major depressive disorder, single episode, unspecified; I47.2 Ventricular tachycardia
CPT/HCPCS: 0099U; 36415; 71260; 80048; 80053; 81001; 82947; 83605; 84145; 84484; 85025; 87086; 93005; 93010; 96361; 96372; 96374-59; 97162; 97166; 97530; 99285-25; G0378; J1650; J1956; J7030; Q9967

== ENCOUNTER → 2019-11-03 | Outpatient (CLI) | payer MEDICARE, OTHER ==
[~2019-11-03] MED LIST changes: +Coreg12.5 MG PO; +Culturelle1 CAP PO; +HUMALOG JU100 UNIT/1 SC; +LEVO750 PO
[2019-11-03 10:25] LABS: Albumin, Blood 3.7 g/dL (3.4-5.0); Anion Gap 9 mmol/L (6-16); Blood Urea Nitrogen 22 mg/dL (8-24); Bun/Creatinine Ratio 16.3 (12.0-20.0); CO2, Blood 24 mmol/L (21-32); Calcium, Blood 9.4 mg/dL (8.5-10.1); Chloride, Blood 107 mmol/L (98-108); Creatinine, Blood 1.35 mg/dL (0.60-1.20); Glomerular Filtration Rate 57 (60-); Glucose, Blood 118 mg/dL (70-99); Phosphorus, Blood 3.7 mg/dL (2.5-4.9); Potassium, Blood 3.8 mmol/L (3.5-5.5); Sodium, Blood 140 mmol/L (136-145)
== END ==
LOC: LAB RH 08:51 → EDSTATUS 09:58 → LAB RH 09:59
PROVIDERS: Internal Medicine Nephrology
DX: N18.2 Chronic kidney disease, stage 2 (mild) (principal); D63.1 Anemia in chronic kidney disease
CPT/HCPCS: 36415; 80069; 85018

== ENCOUNTER → 2020-01-02 | Outpatient (CLI) | payer MEDICARE, OTHER ==
[2020-01-02 08:32] LABS: Albumin, Blood 3.7 g/dL (3.4-5.0); Anion Gap 8 mmol/L (6-16); Blood Urea Nitrogen 20 mg/dL (8-24); Bun/Creatinine Ratio 14.7 (12.0-20.0); CO2, Blood 24 mmol/L (21-32); Calcium, Blood 8.8 mg/dL (8.5-10.1); Chloride, Blood 107 mmol/L (98-108); Creatinine, Blood 1.36 mg/dL (0.60-1.20); Glomerular Filtration Rate 56 (60-); Glucose, Blood 114 mg/dL (70-99); Magnesium, Blood 1.9 mg/dL (1.6-2.4); Phosphorus, Blood 3.2 mg/dL (2.5-4.9); Potassium, Blood 3.8 mmol/L (3.5-5.5); Sodium, Blood 139 mmol/L (136-145); Uric Acid, Blood 6.8 mg/dL (3.5-7.2)
== END | disposition home or self-care (01) ==
LOC: LAB RH 07:49 → EDSTATUS 11:53
PROVIDERS: Internal Medicine Nephrology
DX: E55.9 Vitamin D deficiency, unspecified (principal); E11.21 Type 2 diabetes mellitus with diabetic nephropathy; E11.22 Type 2 diabetes mellitus with diabetic chronic kidney disease; N18.3 Chronic kidney disease, stage 3 (moderate); N25.81 Secondary hyperparathyroidism of renal origin; E78.00 Pure hypercholesterolemia, unspecified; D63.1 Anemia in chronic kidney disease
CPT/HCPCS: 80069; 83036; 83735; 83970; 84550; 85018

== ENCOUNTER → 2020-02-11 | Outpatient (CLI) | payer MEDICARE, OTHER | LOC: LAB 13:15 → LAB SHORT 13:15 | DX: L08.0 Pyoderma (principal) | CPT/HCPCS: 87070; 87205 ==

== ENCOUNTER → 2020-04-12 | Outpatient (CLI) | payer MEDICARE, OTHER ==
[2020-04-12 18:57] LABS: Albumin, Blood 3.8 g/dL (3.4-5.0); Anion Gap 8 mmol/L (6-16); Blood Urea Nitrogen 17 mg/dL (8-24); Bun/Creatinine Ratio 14.2 (12.0-20.0); CO2, Blood 23 mmol/L (21-32); Calcium, Blood 9.2 mg/dL (8.5-10.1); Chloride, Blood 108 mmol/L (98-108); Glomerular Filtration Rate >60 (60-); Glucose, Blood 115 mg/dL (70-99); Phosphorus, Blood 2.8 mg/dL (2.5-4.9); Potassium, Blood 3.9 mmol/L (3.5-5.5); Sodium, Blood 139 mmol/L (136-145)
== END | disposition home or self-care (01) ==
LOC: LAB RH 14:17 → EDSTATUS 15:26
PROVIDERS: Internal Medicine Nephrology
DX: N18.3 Chronic kidney disease, stage 3 (moderate) (principal); D63.1 Anemia in chronic kidney disease; I69.954 Hemiplegia and hemiparesis following unspecified cerebrovascular disease affecting left non-dominant side
CPT/HCPCS: 80069; 85018

== ENCOUNTER → 2020-07-19 | Outpatient (CLI) | payer MEDICARE, OTHER ==
[2020-07-19 20:53] LABS: BASOPHILS ABSOLUTE AUTO 0.09 K/mm3 (0.00-0.23); BASOPHILS PERCENT AUTO 1 % (0-2); EOSINOPHILS ABSOLUTE AUTO 0.05 K/mm3 (0.00-0.68); EOSINOPHILS PERCENT AUTO 0 % (0-6); Hematocrit 50.5 % (37.0-53.0); Hemoglobin 16.8 g/dL (13.5-17.5); IMMATURE GRAN ABSOLUTE AUTO 0.09 K/mm3 (0.00-0.10); IMMATURE GRAN PERCENT AUTO 1 % (0-1); LYMPHOCYTES ABSOLUTE AUTO 1.19 K/mm3 (0.84-5.20); LYMPHOCYTES PERCENT AUTO 9 % (21-46); MONOCYTES ABSOLUTE AUTO 0.72 K/mm3 (0.16-1.47); MONOCYTES PERCENT AUTO 6 % (4-13); Mean Corpuscular HGB 28.6 pg (26.0-34.0); Mean Corpuscular HGB Conc 33.3 g/dL (31.5-36.5); Mean Corpuscular Volume 86 fL (80-100); Mean Platelet Volume 11.9 fL (9.1-12.4); NEUTROPHILS ABSOLUTE AUTO 10.64 K/mm3 (1.96-9.15); NEUTROPHILS PERCENT AUTO 83 % (41-73); Platelet Count 196 K/mm3 (150-400); RDW Coefficient Variation 13.2 % (11.7-14.2); Red Blood Cell Count 5.87 M/mm3 (4.30-5.90); White Blood Cell Count 12.78 K/mm3 (4.00-11.30)
[2020-07-19 21:09] LABS: Bun/Creatinine Ratio 12.1 (12.0-20.0); Calcium, Blood 9.9 mg/dL (8.5-10.1); Creatinine, Blood 1.74 mg/dL (0.60-1.20); Potassium, Blood 3.5 mmol/L (3.5-5.5)
== END | disposition home or self-care (01) ==
LOC: EDSTATUS 12:43 → LAB RH 20:48
PROVIDERS: Family Medicine
DX: I11.9 Hypertensive heart disease without heart failure (principal)
CPT/HCPCS: 80048; 85025

== ENCOUNTER → 2020-10-07 | Outpatient (CLI) | payer MEDICARE, OTHER ==
[~2020-10-07] MED LIST changes: +CLIN300 PO
[2020-10-07 13:18] LABS: BASOPHILS ABSOLUTE AUTO 0.06 K/mm3 (0.00-0.23); BASOPHILS PERCENT AUTO 1 % (0-2); EOSINOPHILS ABSOLUTE AUTO 0.52 K/mm3 (0.00-0.68); EOSINOPHILS PERCENT AUTO 9 % (0-6); Hematocrit 40.9 % (37.0-53.0); Hemoglobin 13.4 g/dL (13.5-17.5); IMMATURE GRAN ABSOLUTE AUTO 0.03 K/mm3 (0.00-0.10); IMMATURE GRAN PERCENT AUTO 1 % (0-1); LYMPHOCYTES ABSOLUTE AUTO 1.02 K/mm3 (0.84-5.20); LYMPHOCYTES PERCENT AUTO 18 % (21-46); MONOCYTES ABSOLUTE AUTO 0.48 K/mm3 (0.16-1.47); MONOCYTES PERCENT AUTO 9 % (4-13); Mean Corpuscular HGB 28.5 pg (26.0-34.0); Mean Corpuscular HGB Conc 32.8 g/dL (31.5-36.5); Mean Corpuscular Volume 87 fL (80-100); Mean Platelet Volume 11.8 fL (9.1-12.4); NEUTROPHILS ABSOLUTE AUTO 3.52 K/mm3 (1.96-9.15); NEUTROPHILS PERCENT AUTO 63 % (41-73); Platelet Count 142 K/mm3 (150-400); RDW Coefficient Variation 13.5 % (11.7-14.2); RDW Standard Deviation 43.5 fL (35.1-46.3); White Blood Cell Count 5.63 K/mm3 (4.00-11.30)
[2020-10-07 13:59] LABS: Albumin, Blood 3.5 g/dL (3.4-5.0); Albumin/Globulin Ratio 0.9 (0.8-1.8); Bilirubin, Total 0.3 mg/dL (0.1-1.0); Bun/Creatinine Ratio 12.8 (12.0-20.0); Calcium, Blood 9.1 mg/dL (8.5-10.1); Creatinine, Blood 1.33 mg/dL (0.60-1.20); Globulin, Blood 3.7 g/dL (2.2-4.0); Potassium, Blood 3.6 mmol/L (3.5-5.5); Total Protein, Blood 7.2 g/dL (6.4-8.2)
[2020-10-07 14:06] LABS: CHOL/HDL RATIO 9.2; Cholesterol 220 mg/dL (50-200); HDL Cholesterol 24 mg/dL (>39); LDL/HDL RATIO 6.3; Low Density Lipoprotein Chol 151 mg/dL (0-110); Triglycerides 226 mg/dL (30-160); Very Low Density Lipoprot Chol 45 mg/dL (6-32)
== END | disposition home or self-care (01) ==
LOC: PLD 07:55 → LAB SHORT 07:55
PROVIDERS: Physician Assistant
DX: E78.5 Hyperlipidemia, unspecified (principal); E11.9 Type 2 diabetes mellitus without complications; E03.9 Hypothyroidism, unspecified; I10 Essential (primary) hypertension
CPT/HCPCS: 80053; 80061; 83036; 84439; 84443; 85025

== ENCOUNTER → 2020-11-03 | Outpatient (CLI) | payer MEDICARE, OTHER ==
[2020-11-03 12:46] LABS: Source, Urine Clean Catch
[2020-11-03 13:33] LABS: Appearance, Urine Clear (Clear); Bilirubin, Urine Neg (Neg); Blood, Urine Neg (Neg); Color, Urine Yellow (P-Yellow); Glucose Qualitative, Urine 2+ (Neg); Ketones, Urine Neg (Neg); Leukocyte Esterase, Urine Neg (Neg); Nitrite, Urine Neg (Neg); Protein, Urine Neg (Neg); Urobilinogen, Urine NORM (Normal)
== END | disposition home or self-care (01) ==
LOC: LAB 12:44 → LAB SHORT 12:44
PROVIDERS: Physician Assistant
DX: N39.0 Urinary tract infection, site not specified (principal)
CPT/HCPCS: 81003

== ENCOUNTER → 2020-11-22 | Outpatient (CLI) | payer MEDICARE, OTHER ==
[2020-11-22 14:41] LABS: Anion Gap 5 mmol/L (6-16); Blood Urea Nitrogen 18 mg/dL (8-24); Bun/Creatinine Ratio 13.1 (12.0-20.0); CO2, Blood 27 mmol/L (21-32); Calcium, Blood 9.4 mg/dL (8.5-10.1); Chloride, Blood 105 mmol/L (98-108); Creatinine, Blood 1.37 mg/dL (0.60-1.20); Glomerular Filtration Rate 55 (60-); Glucose, Blood 176 mg/dL (70-99); Potassium, Blood 4.2 mmol/L (3.5-5.5); Sodium, Blood 137 mmol/L (136-145)
== END | disposition home or self-care (01) ==
LOC: LAB 09:15 → LAB SHORT 09:15
PROVIDERS: Internal Medicine Nephrology
DX: N18.30 Chronic kidney disease, stage 3 unspecified (principal); D63.1 Anemia in chronic kidney disease
CPT/HCPCS: 80069; 85018

== ENCOUNTER → 2021-01-27 | Outpatient (CLI) | payer MEDICARE, OTHER ==
[2021-01-27 14:23] LABS: Albumin, Blood 3.5 g/dL (3.4-5.0); Anion Gap 7 mmol/L (6-16); Blood Urea Nitrogen 22 mg/dL (8-24); Bun/Creatinine Ratio 15.5 (12.0-20.0); CO2, Blood 23 mmol/L (21-32); Calcium, Blood 9.4 mg/dL (8.5-10.1); Chloride, Blood 104 mmol/L (98-108); Creatinine, Blood 1.42 mg/dL (0.60-1.20); Glomerular Filtration Rate 53 (60-); Glucose, Blood 176 mg/dL (70-99); Potassium, Blood 4.2 mmol/L (3.5-5.5); Sodium, Blood 134 mmol/L (136-145)
== END | disposition home or self-care (01) ==
LOC: LAB 12:24 → LAB SHORT 12:24
PROVIDERS: Internal Medicine Nephrology
DX: N18.30 Chronic kidney disease, stage 3 unspecified (principal); D63.1 Anemia in chronic kidney disease
CPT/HCPCS: 80069; 85018

== ENCOUNTER → 2021-02-11 | Outpatient (CLI) | payer MEDICARE, OTHER ==
[2021-02-11 14:56] LABS: Albumin, Blood 3.8 g/dL (3.4-5.0); Bilirubin, Total 0.4 mg/dL (0.1-1.0); Bun/Creatinine Ratio 10.4 (12.0-20.0); Creatinine, Blood 1.44 mg/dL (0.60-1.20); Globulin, Blood 3.9 g/dL (2.2-4.0); Potassium, Blood 3.9 mmol/L (3.5-5.5); Total Protein, Blood 7.7 g/dL (6.4-8.2)
== END | disposition home or self-care (01) ==
LOC: LAB SHORT 07:20 → LAB 07:20
PROVIDERS: Physician Assistant
DX: Z51.81 Encounter for therapeutic drug level monitoring (principal); Z79.899 Other long term (current) drug therapy
CPT/HCPCS: 80053

== ENCOUNTER 2021-04-19 14:14 | Inpatient (IN) | payer MEDICARE, OTHER ==
[~2021-04-19] VITALS: Ht 175.3 cm; Wt 88.8 kg
[~2021-04-19 14:14] MED LIST changes: +EUTHYROX50 MCG PO; +LEVETIRACETAM1000 M1 PO; +SERT100 PO; -SERT25 PO
[2021-04-19] MEDS ORDERED: ALDACTONE100 MG PO (15:22)
[2021-04-19 15:26] LABS: BASOPHILS ABSOLUTE AUTO 0.05 K/mm3 (0.00-0.23); BASOPHILS PERCENT AUTO 0 % (0-2); EOSINOPHILS ABSOLUTE AUTO 0.02 K/mm3 (0.00-0.68); EOSINOPHILS PERCENT AUTO 0 % (0-6); Hematocrit 49.7 % (37.0-53.0); Hemoglobin 15.9 g/dL (13.5-17.5); IMMATURE GRAN ABSOLUTE AUTO 0.11 K/mm3 (0.00-0.10); IMMATURE GRAN PERCENT AUTO 1 % (0-1); LYMPHOCYTES ABSOLUTE AUTO 1.03 K/mm3 (0.84-5.20); LYMPHOCYTES PERCENT AUTO 7 % (21-46); MONOCYTES ABSOLUTE AUTO 1.06 K/mm3 (0.16-1.47); MONOCYTES PERCENT AUTO 7 % (4-13); Mean Corpuscular HGB 27.7 pg (26.0-34.0); Mean Corpuscular Volume 87 fL (80-100); Mean Platelet Volume 11.7 fL (9.1-12.4); NEUTROPHILS ABSOLUTE AUTO 12.47 K/mm3 (1.96-9.15); NEUTROPHILS PERCENT AUTO 85 % (41-73); Platelet Count 303 K/mm3 (150-400); RDW Coefficient Variation 16.3 % (11.7-14.2); RDW Standard Deviation 50.8 fL (35.1-46.3); Red Blood Cell Count 5.74 M/mm3 (4.30-5.90); White Blood Cell Count 14.74 K/mm3 (4.00-11.30)
[2021-04-19 16:43] LABS: Source, Urine Catheter
[2021-04-19 16:53] LABS: Albumin, Blood 3.5 g/dL (3.4-5.0); Albumin/Globulin Ratio 0.6 (0.8-1.8); Bilirubin, Total 0.5 mg/dL (0.1-1.0); Bun/Creatinine Ratio 29.4 (12.0-20.0); Calcium, Blood 9.5 mg/dL (8.5-10.1); Creatinine, Blood 3.09 mg/dL (0.60-1.20); Globulin, Blood 5.5 g/dL (2.2-4.0); Potassium, Blood 6.2 mmol/L (3.5-5.5)
[2021-04-19 16:55] LABS: Appearance, Urine Clear (Clear); Bilirubin, Urine Neg (Neg); Blood, Urine 2+ (Neg); Color, Urine Yellow (P-Yellow); Glucose Qualitative, Urine 1+ (Neg); Ketones, Urine Neg (Neg); Leukocyte Esterase, Urine Neg (Neg); Nitrite, Urine Neg (Neg); Protein, Urine 1+ (Neg); Specific Gravity, Urine 1.025 (1.003-1.022); Urobilinogen, Urine NORM (Normal)
[2021-04-19 17:08] LABS: Red Blood Cells, Urine 0-2 /hpf (0-2); Uric Acid Crystals Rare /hpf
[2021-04-19 17:09] LABS: Bacteria Mod /hpf; Squamous Epithelial Cells Rare /hpf (Few)
[2021-04-19 17:52] LABS: Free Thyroxine 1.14 ng/dL (0.70-1.60); Magnesium, Blood 3.7 mg/dL (1.6-2.4)
[2021-04-19 17:55] LABS: Thyroid Stimulating Hormone 1.7 uIU/mL (0.360-4.800)
[2021-04-19 20:09] LABS: Bun/Creatinine Ratio 29.8 (12.0-20.0); Calcium, Blood 9.3 mg/dL (8.5-10.1); Creatinine, Blood 3.05 mg/dL (0.60-1.20); Potassium, Blood 5.8 mmol/L (3.5-5.5)
[2021-04-19] MEDS ORDERED: KETO15TC TOP (22:04)
[2021-04-19] MEDS ORDERED: NYSTATIN100000 UN1 SS (22:05)
[2021-04-19 23:50] LABS: U Amphetamine Screen Not Detected; U Barbituate Screen Not Detected; U Benzodiazapine Screen Not Detected; U Buprenorphine Screen Not Detected; U Cannabinoids Screen Not Detected; U Cocaine Screen Not Detected; U Methadone Screen Not Detected; U Methamphetamine Screen Not Detected; U Opiates Screen Not Detected; U Oxycodone Screen Not Detected; U Phencyclidine Screen Not Detected; U Propoxyphene Screen Not Detected
[2021-04-20 05:10] LABS: BASOPHILS ABSOLUTE AUTO 0.04 K/mm3 (0.00-0.23); BASOPHILS PERCENT AUTO 0 % (0-2); EOSINOPHILS ABSOLUTE AUTO 0.01 K/mm3 (0.00-0.68); EOSINOPHILS PERCENT AUTO 0 % (0-6); Hematocrit 49.8 % (37.0-53.0); Hemoglobin 15.6 g/dL (13.5-17.5); IMMATURE GRAN ABSOLUTE AUTO 0.07 K/mm3 (0.00-0.10); IMMATURE GRAN PERCENT AUTO 1 % (0-1); LYMPHOCYTES ABSOLUTE AUTO 0.81 K/mm3 (0.84-5.20); LYMPHOCYTES PERCENT AUTO 6 % (21-46); MONOCYTES ABSOLUTE AUTO 0.95 K/mm3 (0.16-1.47); MONOCYTES PERCENT AUTO 7 % (4-13); Mean Corpuscular HGB 27.1 pg (26.0-34.0); Mean Corpuscular HGB Conc 31.3 g/dL (31.5-36.5); Mean Corpuscular Volume 87 fL (80-100); Mean Platelet Volume 11.4 fL (9.1-12.4); NEUTROPHILS PERCENT AUTO 86 % (41-73); Platelet Count 302 K/mm3 (150-400); RDW Coefficient Variation 16.2 % (11.7-14.2); RDW Standard Deviation 51.2 fL (35.1-46.3); Red Blood Cell Count 5.75 M/mm3 (4.30-5.90); White Blood Cell Count 13.78 K/mm3 (4.00-11.30)
[2021-04-20 05:55] LABS: Albumin, Blood 3.2 g/dL (3.4-5.0); Albumin/Globulin Ratio 0.6 (0.8-1.8); Bilirubin, Total 0.4 mg/dL (0.1-1.0); Bun/Creatinine Ratio 31.3 (12.0-20.0); Calcium, Blood 9.1 mg/dL (8.5-10.1); Creatinine, Blood 2.75 mg/dL (0.60-1.20); Globulin, Blood 5.2 g/dL (2.2-4.0); Potassium, Blood 4.8 mmol/L (3.5-5.5); Total Protein, Blood 8.4 g/dL (6.4-8.2)
--- NOTE | 2021-04-20 07:40 | NUR ---
SHIFT SUMMARY PT WAS A NEW ADMIT DURING THE NIGHT, ARRIVING ON THE FLOOR AT 2300. HE IS A&O X SELF, NONVERBAL AND DOES NOT FOLLOW COMMANDS. SOME BUE MOVEMENT NOTED, BUT NO BLE MOVEMENT NOTED. INCONTINENT, TURN Q2H. TELE SHOWED NSR C BBB @ 90S. VITAL SIGNS STABLE. NO S/S OF PAIN OR DISTRESS. PT RECEIVING NS @ 100 ML/HR. NO ACUTE CHANGES IN PT CONDITION NOTED SINCE ADMIT. REPORT GIVEN TO ONCOMING RN.
--- NOTE | 2021-04-20 10:33 | NUR ---
REPORT FROM [facility] RN ELIJAH: PT WAS DIAGNOSED WITH COVID ON 04/07 AND HAS SLOWLY DECLINED IN COGNITION AND HAD INCREASED WX. PT DOES HAVE A HX OF CVA WITH SOME SPEACH DEFECITS AT BASELINE. PT NORMALLY IS ALERT, IND WITH EATING AND DRINGING AND VERY SOCIAL. NURSE REPORTS THAT HE STOPPED EATING AND DRINGING AT HOME ABOUT 2 DAYS AGO AND NOW IS NON VERBAL AND UNABLE TO ASSIST WITH ANY CARE. INFORMATION REPORTED TO DR. JAIN AND DR. AUGUSTIN.
[2021-04-20 17:37] LABS: PCO2 Arterial 27.2 mmHg (35-45); PO2 Arterial 73.2 mmHg (80-100); pH Blood Arterial 7.35 (7.35-7.45)
--- NOTE | 2021-04-20 18:58 | NUR ---
PT REMAINED NON VERBAL T/O DAY. TEMP SPIKED AT 1345 TODAY AND PT WAS MEDICATED WITH TYELENOL OR. PT VS STABLE T/O DAY, SATS 90'S ON 2L. IN AFTERNOON PT FOUND TO BE IN RESPIRATORY DISTRESS, RESP @ 50, TEMP INCREASED TO 103.1 AND SATS IN 80'S. MD ROUNDING AND IN AT BEDSIDE, RT CALLED FOR EVAL AND INTERVENTION. PT PLACED ON BIPAP AND PLANS TO TRANSFER PT TO PCU ESTABLISHED PENDING BED AVAILABILITY. REPORT GIVEN TO SHEARING SUPERVISOR RN PRIOR TO TRANSPORT.
[2021-04-20 22:04] LABS: BASOPHILS ABSOLUTE AUTO 0.04 K/mm3 (0.00-0.23); BASOPHILS PERCENT AUTO 0 % (0-2); EOSINOPHILS ABSOLUTE AUTO 0.02 K/mm3 (0.00-0.68); EOSINOPHILS PERCENT AUTO 0 % (0-6); Hemoglobin 14.8 g/dL (13.5-17.5); IMMATURE GRAN ABSOLUTE AUTO 0.08 K/mm3 (0.00-0.10); IMMATURE GRAN PERCENT AUTO 0 % (0-1); LYMPHOCYTES PERCENT AUTO 5 % (21-46); MONOCYTES ABSOLUTE AUTO 0.44 K/mm3 (0.16-1.47); MONOCYTES PERCENT AUTO 2 % (4-13); Mean Corpuscular HGB 27.3 pg (26.0-34.0); Mean Corpuscular HGB Conc 31.5 g/dL (31.5-36.5); Mean Corpuscular Volume 87 fL (80-100); Mean Platelet Volume 11.8 fL (9.1-12.4); NEUTROPHILS ABSOLUTE AUTO 16.89 K/mm3 (1.96-9.15); NEUTROPHILS PERCENT AUTO 92 % (41-73); Platelet Count 350 K/mm3 (150-400); RDW Coefficient Variation 16.4 % (11.7-14.2); RDW Standard Deviation 52.4 fL (35.1-46.3); Red Blood Cell Count 5.43 M/mm3 (4.30-5.90); White Blood Cell Count 18.37 K/mm3 (4.00-11.30)
[2021-04-20 22:23] LABS: Albumin, Blood 2.7 g/dL (3.4-5.0); Anion Gap 10 mmol/L (6-16); Blood Urea Nitrogen 91 mg/dL (8-24); Bun/Creatinine Ratio 21.5 (12.0-20.0); CO2, Blood 16 mmol/L (21-32); Calcium, Blood 8.6 mg/dL (8.5-10.1); Chloride, Blood 122 mmol/L (98-108); Creatinine, Blood 4.23 mg/dL (0.60-1.20); Glomerular Filtration Rate 14 (60-); Glucose, Blood 322 mg/dL (70-99); Magnesium, Blood 3.1 mg/dL (1.6-2.4); Potassium, Blood 5.1 mmol/L (3.5-5.5); Sodium, Blood 148 mmol/L (136-145)
[2021-04-21 01:31] LABS: Source, Urine Catheter
--- NOTE | 2021-04-21 01:33 | NUR ---
PT CHANGED TO ICU STATUS ASSUMED CARE OF PT AT 1999. PT IS OBTUNDED, EYES HAVE NYSTAGMUS, PT DOES NOT RESPOND TO PAIN OR VERBAL STIMULUS. VITAL SIGNS SHOWED SYSTOLIC BP OF 85 AND PULSE OF 135. HOSPITALIST NOTIFED AND ORDERED 1L FLUID BOLUS. DOCTOR CAME TO DO ROUNDING AND THIS NURSE STATED CONCERNS TO HOSPITALIST DR EDGE. SHE CAME AND SAW PT AND AGREED THAT PT IS NOT DOING WELL DUE TO MOTTLEING OF HANDS AND FEET AND UNRESPONSIVENESS. STATED TO CALL FAMILY MEMBERS. CALL WAS MADE TO NATIVIDAD, PT SON. NATIVIDAD WAS CALLED BY HOSITALIST IN THE AM AND WAS UPDATED ON PT CONDITION. THIS NURSE VOICED CONCERN ABOUT PT CODE STATUS AND HOW PT COULD DETERIORATE QUICKLY. SON HESITATE TO MAKE DESISIONS HE DOES NOT HAVE POA, NOR ANYONE IN THE FAMILIY. NATIVIDAD STATED THAT HE WOULD CALL PT SIBLINGS ABOUT WHAT THE PT WOULD WANT. PT DAUGHTER CALLED BUT THIS NURSE WAS NOT ABLE TO GET TO THE PHONE ON TIME, DAUGHTER ALSO NOT ON FACESHEET TO TALK TO. DAUGHTER ENDED UP SHOWING UP TO THE HOSPITAL. DAUGHTER CAME IN TO SEE PT AND TALKED WITH HOSPITALIST MINESH. SHE VOICED CONCERN TO THIS NURSE THAT SINCE HE WAS ONLY IN THE HOSPITAL ONE DAY THAT SHE WANTED TO TRY EVERYTHING TO SEE IF HE WOULD DO BETTER TOMORROW. PT IS ON BIPAP AT 14/8 AT 80% FIO2, TOLERATING WELL. LUNG SOUNDS ARE VERY DIMINISHED WITH CRACKLES. PT HEART RATE HAS BEEN ELEVATED FROM 135 TO 120S AFTER 3L OF FLUID BULOSED. PT BP HAS BEEN DECREASED TO THE 70-80 SYSTOLIC, NOTIFIED DR CASTILLO, WHO SAID TO START LEVOPHED DRIP. PT IS NOT ON 5 MCG/MIN, DR CASTILLO NOTIFED AND WILL PUT IN A CENTRAL LINE. PT TEMPURATURE IS ALSO ELEVATED, IT WAS 105 RECTALLY, TEMP BIANCHI PLACED AND SHOWS HIGHEST TEMP AT 104.0. RECTAL TYLENOL GIVEN, WITH LITTLE SUCESS, PT IS COVERED IN ICEPACKS. NURSE CAROLINE UPDATED SON ABOUT PT CONDITION AND CONFIRMED WITH SON ABOUT PT POLST. DAUGHTER ALSO PUT ONTO CONTACT LIST @ 8050.
[2021-04-21 01:36] LABS: Bilirubin, Urine Neg (Neg); Blood, Urine 5+ (Neg); Glucose Qualitative, Urine 3+ (Neg); Ketones, Urine Neg (Neg); Leukocyte Esterase, Urine Neg (Neg); Nitrite, Urine Neg (Neg); Protein, Urine 2+ (Neg); Urobilinogen, Urine NORM (Normal)
[2021-04-21 01:43] LABS: Appearance, Urine Hazy (Clear); Color, Urine Yellow (P-Yellow)
[2021-04-21 01:44] LABS: Bacteria Few /hpf; Red Blood Cells, Urine TNTC /hpf (0-2); Squamous Epithelial Cells Few /hpf (Few); White Blood Cells, Urine Rare /hpf (0-5)
[2021-04-21 02:56] LABS: BASOPHILS ABSOLUTE AUTO 0.02 K/mm3 (0.00-0.23); BASOPHILS PERCENT AUTO 0 % (0-2); EOSINOPHILS PERCENT AUTO 0 % (0-6); Hematocrit 43.2 % (37.0-53.0); Hemoglobin 13.3 g/dL (13.5-17.5); IMMATURE GRAN ABSOLUTE AUTO 0.09 K/mm3 (0.00-0.10); IMMATURE GRAN PERCENT AUTO 1 % (0-1); LYMPHOCYTES ABSOLUTE AUTO 0.85 K/mm3 (0.84-5.20); LYMPHOCYTES PERCENT AUTO 5 % (21-46); MONOCYTES ABSOLUTE AUTO 0.54 K/mm3 (0.16-1.47); MONOCYTES PERCENT AUTO 3 % (4-13); Mean Corpuscular HGB 27.1 pg (26.0-34.0); Mean Corpuscular HGB Conc 30.8 g/dL (31.5-36.5); Mean Corpuscular Volume 88 fL (80-100); Mean Platelet Volume 11.9 fL (9.1-12.4); NEUTROPHILS ABSOLUTE AUTO 16.13 K/mm3 (1.96-9.15); NEUTROPHILS PERCENT AUTO 92 % (41-73); Platelet Count 213 K/mm3 (150-400); RDW Coefficient Variation 16.2 % (11.7-14.2); RDW Standard Deviation 53.3 fL (35.1-46.3); Red Blood Cell Count 4.91 M/mm3 (4.30-5.90); White Blood Cell Count 17.63 K/mm3 (4.00-11.30)
[2021-04-21 03:11] LABS: Albumin, Blood 2.4 g/dL (3.4-5.0); Anion Gap 9 mmol/L (6-16); Blood Urea Nitrogen 86 mg/dL (8-24); Bun/Creatinine Ratio 20.1 (12.0-20.0); CO2, Blood 18 mmol/L (21-32); Calcium, Blood 8.4 mg/dL (8.5-10.1); Chloride, Blood 123 mmol/L (98-108); Creatinine, Blood 4.27 mg/dL (0.60-1.20); Glomerular Filtration Rate 14 (60-); Glucose, Blood 296 mg/dL (70-99); Phosphorus, Blood 1.9 mg/dL (2.5-4.9); Potassium, Blood 4.4 mmol/L (3.5-5.5); Sodium, Blood 150 mmol/L (136-145)
[2021-04-21 05:12] LABS: SARS-Cov-2 (COVID-19) PCR, MMC POSITIVE (NEGATIVE)
--- NOTE | 2021-04-21 06:41 | NUR ---
SHIFT SUMMARY PT IS WILL OPE NEYES TO VERBAL AND TOUCH STIMULUS. PT WILL NOT RESPOND VERBALLY OR NON VERBALLY. PT BIPAP SETTINGS HAVE BEEN TURNED DOWN TO 65% FIO2. RESPIRATIONS DECREASED TO 28-30. PT REMAINS ON LEVOPHED. PT NOW ON HEPRIN DRIP BEUCASE HEAD CT WAS NEGATIVE FOR ANY ACUTE EVENTS. PT STILL HAS A FEVER OF 102 PER BIANCHI TEMP. HOSPITALIST NOTIFIED OF LOW PHOS AND HIGH SODIUM AND ORDERED 1/2 NORMAL SALINE AND A K PHOS RIDER. PT WAS INCONTIENT OF BM. POLST CONFIRMED WITH DR CASTILLO. PT POLST SHOWS NO INTUBATION. THIS WAS CONFIRMED WITH SON. DAUGHTER WAS CONFLICTING, SAYING THAT SHE WANTED EVERYTHING DONE FOR HER FATHER.
--- NOTE | 2021-04-21 09:35 | NUR ---
Received a call from Dr. Sam with concerns of family members requests for pt's care being different. Reviewed chart and notes. Pt's dtr, Yesi, came in last night and wanted everything done. Pt's POLST on file from 2016 states CPR, no intubation. Phone call to pt's son, Chavo. Chavo states that he has spoken to his siblings (2 brothers and his sister) and that they are all on the same page to continue care per their dad's wishes that are documented on his POLST from 08/02/2016. Pt remains a full code at this time with no intubation. Explained that if Pedro declines that further discussions re: goals of care would need to be discussed. Chavo agrees to be the family contact and he states he will update his siblings. Chavo states that he has some caregiver experience in the past and is aware that if CPR was to be done on Pedro that without intubation it would not be successful. Chavo also stated that he and his siblings would need to consider Pedro's quality of life going forward. Encouraged Chavo to contact staff for updates and updated nursing and Dr. Sam on family's decision to follow POLST for care at this time. PC to remain available.
--- NOTE | 2021-04-21 12:41 | NUR ---
REASSESSMENT PT HAS BEEN RESTING IN BED ON THE BIPAP THROUGHOUT THE MORNING. LEVOPHED ABLE TO BE TITRATED OFF AND FIO2 TITRATED DOWN ON THE BIPAP. PT HAS A LOT OF DRIED SECRETIONS IN HIS ORAL CAVITY SO AGGRESSIVE ORAL CARE BEING DONE. PT GAGS AND COUGHS WITH ORAL CARE BUT ISN'T ABLE TO CLEAR THE SPUTUM. DEEP SUCTIONED ORALLY AND THICK JUAREZ SPUTUM SUCTIONED OUT. LUNGS ARE CLEAR BUT DIM. PT REMAINS AWAKE BUT NON-INTERACTIVE AND ONLY RESPONDING TO PAINFUL STIMULI. ONLY GROSS MOTOR MOVEMENT NOTED IN R ARM. DRESSING ON COCCYX CHANGED WITH BOWEL MOVEMENT. CONTINUING TO MONITOR.
--- NOTE | 2021-04-21 16:42 | NUR ---
SHIFT SUMMARY PT REMAINS BIPAP DEPENDENT. WHEN OFF OF THE BIPAP HIS RESPIRATIONS ARE VERY SHALLOW. HIS COUGH IS WEAK. THICK JUAREZ SPUTUM SUCTIONED WITH DEEP ORAL SUCTIONING OUT OF THE BACK OF THE THROAT. LOTS OF AGGRESSIVE ORAL CARE PROVIDED AND LOTS OF DRIED SECRETIONS REMOVED FROM THE BACK OF PT'S TONGUE AND ORAL CAVITY. LUNGS ARE COARSE THIS EVENING. FIO2 ABLE TO BE TITRATED DOWN TO 50%. LEVOPHED TITRATED OFF TODAY AND HAS REMAINED OFF. DR. ZAZUETA GAVE OK FOR PT TO BE DOWNGRADED TO PCU STATUS. ST IN THE LOW 100S. FEVER STARTED TO CLIMB THIS AFTERNOON, BUT CAME BACK DOWN AFTER AK TYLENOL. PT IS MOVING HIS RA MORE THIS EVENING, STILL GROSS MOTOR MOVEMENT. STILL JUST MOANS, NO WORDS. STILL NOT TRACKING PEOPLE IN THE ROOM. PALLIATIVE CARE SPOKE WITH PT'S CHILDREN TODAY. CONTINUING TO MONITOR.
[2021-04-22 04:29] LABS: BASOPHILS ABSOLUTE AUTO 0.02 K/mm3 (0.00-0.23); BASOPHILS PERCENT AUTO 0 % (0-2); EOSINOPHILS PERCENT AUTO 0 % (0-6); Hematocrit 39.5 % (37.0-53.0); Hemoglobin 12.4 g/dL (13.5-17.5); IMMATURE GRAN ABSOLUTE AUTO 0.07 K/mm3 (0.00-0.10); IMMATURE GRAN PERCENT AUTO 1 % (0-1); LYMPHOCYTES ABSOLUTE AUTO 0.87 K/mm3 (0.84-5.20); LYMPHOCYTES PERCENT AUTO 6 % (21-46); MONOCYTES ABSOLUTE AUTO 0.45 K/mm3 (0.16-1.47); MONOCYTES PERCENT AUTO 3 % (4-13); Mean Corpuscular HGB 27.3 pg (26.0-34.0); Mean Corpuscular HGB Conc 31.4 g/dL (31.5-36.5); Mean Corpuscular Volume 87 fL (80-100); Mean Platelet Volume 11.2 fL (9.1-12.4); NEUTROPHILS ABSOLUTE AUTO 12.69 K/mm3 (1.96-9.15); NEUTROPHILS PERCENT AUTO 90 % (41-73); Platelet Count 153 K/mm3 (150-400); RDW Coefficient Variation 16.5 % (11.7-14.2); RDW Standard Deviation 52.7 fL (35.1-46.3); Red Blood Cell Count 4.54 M/mm3 (4.30-5.90)
[2021-04-22 04:45] LABS: Albumin, Blood 2.5 g/dL (3.4-5.0); Anion Gap 7 mmol/L (6-16); Blood Urea Nitrogen 51 mg/dL (8-24); Bun/Creatinine Ratio 19.5 (12.0-20.0); CO2, Blood 21 mmol/L (21-32); Calcium, Blood 7.6 mg/dL (8.5-10.1); Chloride, Blood 123 mmol/L (98-108); Creatinine, Blood 2.61 mg/dL (0.60-1.20); Glomerular Filtration Rate 25 (60-); Glucose, Blood 139 mg/dL (70-99); Phosphorus, Blood 2.5 mg/dL (2.5-4.9); Potassium, Blood 4.4 mmol/L (3.5-5.5); Sodium, Blood 151 mmol/L (136-145)
--- NOTE | 2021-04-22 05:46 | NUR ---
SHIFT SUMMARY PT BECAME AGITATED AND RESTLESS DURING THE NIGHT AND WOULD PULL AT LINES, RIGHT SOFT WRIST RESTRAINT NOW IN PLACE. PT HAS SLEPT THE MAJORITY OF THE NIGHT AND WOULD OPEN EYES WHEN ADDRESSED BUT WOULD NOT TRACK. A. FLUTTER IN THE 110'S. NO OTHER ACUTE CHANGES NOTED.
--- NOTE | 2021-04-22 07:27 | NUR ---
ASSUMED CARE: PT ON BIPAP AT THIS TIME 09/04 WITH 50% FIO2. SINUS TACH ON TELE AT 111. WRIST RESTRAINT TO RIGHT SIDE. RT AT BEDSIDE. NO FURTHER NEEDS AT THIS TIME.
--- NOTE | 2021-04-22 09:30 | NUR ---
PT WAS PROVIDED WITH ORAL CARE AND REMOVED FROM BIPAP FOR SEVERAL MINUTES. HE DESATURATED INTO HIGH 80S AFTER A FEW MINUTES. WAS ANXIOUS WITH ORAL CARE AND MOANED BUT DID NOT VERBALIZE WORDS. RESTRAINT REMAINS TO RIGHT HAND DUE TO TRYING TO PULL AT MASK AND INTERFERE WITH CARE
--- NOTE | 2021-04-22 11:27 | NUR ---
DISCUSSED PT'S STATUS WITH PALLIATIVE CARE NURSE. NURSE PLANNING TO CONTACT PT'S FAMILY AND WILL UPDATE THIS RN WHEN ABLE
--- NOTE | 2021-04-22 18:26 | NUR ---
SHIFT SUMMARY: PT REMAINS ON BIPAP AT 14/8 AND 35% FIO2. RIGHT WRIST RESTRAINT IN PLACE. FAMILY PLANNING TO COME SEE PT THIS EVENING. THEY HAVE BEEN HAVING DISCUSSIONS WITH PALLIATIVE CARE REGARDING COMFORT CARE. PT REMAINS WITH EYES OPEN AND TRACKING BUT NOT VERBALIZING. NO FURTHER NEEDS AT THIS TIME.
--- NOTE | 2021-04-22 19:05 | NUR ---
Had a family conference by phone this evening with pt's family. Pt's daughter Yesi identified herself as a nurse and requested multiple lab numbers and asked why no x-rays had been done. However, pt has had multiple x-rays performed and a recent x-ray did indicate Covid. After continued questions, I did read a part of MD progress note, stating pt's SOFA score was 12 with a 95% chance mortality rate. Yesi requests to come see pt, along with one other family member as they have medical backgrounds. Pt's bedside nurse and charge nurse are on board with this, as they will be the ones ultimately deciding if pt will transition to comfort care.
[2021-04-23 04:08] LABS: BASOPHILS ABSOLUTE AUTO 0.01 K/mm3 (0.00-0.23); BASOPHILS PERCENT AUTO 0 % (0-2); EOSINOPHILS PERCENT AUTO 0 % (0-6); Hematocrit 37.5 % (37.0-53.0); Hemoglobin 11.5 g/dL (13.5-17.5); IMMATURE GRAN ABSOLUTE AUTO 0.05 K/mm3 (0.00-0.10); IMMATURE GRAN PERCENT AUTO 1 % (0-1); LYMPHOCYTES ABSOLUTE AUTO 0.69 K/mm3 (0.84-5.20); LYMPHOCYTES PERCENT AUTO 7 % (21-46); MONOCYTES ABSOLUTE AUTO 0.35 K/mm3 (0.16-1.47); MONOCYTES PERCENT AUTO 3 % (4-13); Mean Corpuscular HGB 27.1 pg (26.0-34.0); Mean Corpuscular HGB Conc 30.7 g/dL (31.5-36.5); Mean Corpuscular Volume 88 fL (80-100); Mean Platelet Volume 12.1 fL (9.1-12.4); NEUTROPHILS ABSOLUTE AUTO 9.23 K/mm3 (1.96-9.15); NEUTROPHILS PERCENT AUTO 89 % (41-73); Platelet Count 134 K/mm3 (150-400); RDW Coefficient Variation 16.6 % (11.7-14.2); RDW Standard Deviation 53.9 fL (35.1-46.3); Red Blood Cell Count 4.24 M/mm3 (4.30-5.90); White Blood Cell Count 10.33 K/mm3 (4.00-11.30)
[2021-04-23 04:24] LABS: Albumin, Blood 2.3 g/dL (3.4-5.0); Anion Gap 5 mmol/L (6-16); Blood Urea Nitrogen 38 mg/dL (8-24); Bun/Creatinine Ratio 21.1 (12.0-20.0); CO2, Blood 24 mmol/L (21-32); Calcium, Blood 7.7 mg/dL (8.5-10.1); Chloride, Blood 124 mmol/L (98-108); Glomerular Filtration Rate 38 (60-); Glucose, Blood 168 mg/dL (70-99); Phosphorus, Blood 2.3 mg/dL (2.5-4.9); Potassium, Blood 4.6 mmol/L (3.5-5.5); Sodium, Blood 153 mmol/L (136-145)
--- NOTE | 2021-04-23 06:41 | NUR ---
SHIFT SUMMARY PT CONTINUES TO BE NONVERBAL, TOLERATED ALL PROCEDURES WELL, WOULD OCCASIONALLY FOLLOW SIMPLE COMMANDS DURING ORAL CARE AND OTHER PROCEDURES. PT WOULD MOVE LOWER LIP OUT OF THE BIPAP MASK, THIS WOULD CAUSE A MINOR DIP IN SPO2 TO 87% WHICH WOULD WUICKLY RECOVER TO >90% ONCE THE MASK WAS PROPERLY REPOSITIONED. NO OTHER ACUTE CHANGES NOTED.
--- NOTE | 2021-04-23 07:18 | NUR ---
ASSUMED CARE: PT RESTING IN BED WITH BIPAP IN PLACE. RIGHT WRIST RESTRAINT. PT TRACKS WITH EYES WHEN STAFF IS IN ROOM. HEPARIN GTT RUNNING, LR RUNNING WELL. NO FURTHER NEEDS OR CONCERNS AT THIS TIME
--- NOTE | 2021-04-23 08:18 | NUR ---
PT TRANSITIONED FROM BIPAP TO HIGH FLOW NC WITH RT ASSIST. CURRENTLY 95% ON 4L. PT IS NODDING AND SHAKING HEAD IN RESPONSE TO YES/NO QUESTIONS
--- NOTE | 2021-04-23 13:57 | NUR ---
DR PITTS INSTRUCTED FOR NG TUBE PLACEMENT DUE TO PT'S FREE WATER DEFICIT AND FAILED BY SPEECH THERAPY. PALLIATIVE CARE NURSE SPOKE WITH PT'S SONE WHO STATED PT WOULDN'T WANT TUBE FEEDING. PALLIATIVE CARE NURSE CALLED PT'S DAUGHTER WHO SAID THEY HAD A FAMILY MEETING AND THEY DECIDED THAT THEY WANTED TUBE PLACEMENT AND RESTRAINTS. DR PITTS AWARE. DOBHOFF PLACED WITH 3 PERSON ASSIST. XRAY DONE TO CONFIRM PLACEMENT. AWAITING VERIFICATION FROM RADIOLOGY AND DIETITIAN RECOMMENDATIONS.
--- NOTE | 2021-04-23 17:45 | NUR ---
confrence call with family and physician. they are wanting to stay the course for now and give him treatment. the physicain impressed on them his frailty and we may need to go to comfort care. kps score is 30%
[2021-04-23 18:46] LABS: Bun/Creatinine Ratio 23.2 (12.0-20.0); Calcium, Blood 8.5 mg/dL (8.5-10.1); Creatinine, Blood 1.64 mg/dL (0.60-1.20); Potassium, Blood 4.6 mmol/L (3.5-5.5)
--- NOTE | 2021-04-23 19:12 | NUR ---
SHIFT SUMMARY: PT IS RESTING BED WITH DOBHOFF IN PLACE AT 20MLS/HR. HEPARIN GTT RUNNING PER ORDERS. PT TOLERATING NC AT 4L. FAMILY HAD MEETING WITH PALLIATIVE CARE AND DR TO DETERMINE COURSE OF ACTION. BILATERAL WRIST RESTRAINTS IN PLACE TO AVOID REMOVAL OF DOBHOFF
[2021-04-24 04:49] LABS: Bun/Creatinine Ratio 23.3 (12.0-20.0); Creatinine, Blood 1.46 mg/dL (0.60-1.20)
--- NOTE | 2021-04-24 05:22 | NUR ---
SHIFT SUMMARY PT HAS SLEPT THE MAJORITY OF THE NIGHT, EASILY AROUSABLE. PT HAS MAINTAINED AN SPO2 OF >90% ON 4L NC. DOBHOFF IN PLACE RUNNING CONTINUOUS FEED AT 20MLS/HR PER ORDERS. HEPARIN GTT INFUSING PER ORDERS. PT HAS MADE UNINTELLIGBLE VOCALIZATIONS AND ON OCCASION APPEARS TO FOLLOW SIMPLE COMMANDS. NO DISCERNABLE MOVEMENT FROM LEFT ARM AND ONLY GROSS MOVEMENT FROM RIGHT ARM. NO OTHER ACUTE CHANGES NOTED.
--- NOTE | 2021-04-24 13:36 | NUR ---
called pt daughter to check in with her.
[2021-04-24 16:35] LABS: Bun/Creatinine Ratio 21.2 (12.0-20.0); Calcium, Blood 8.4 mg/dL (8.5-10.1); Creatinine, Blood 1.46 mg/dL (0.60-1.20); Potassium, Blood 4.4 mmol/L (3.5-5.5)
--- NOTE | 2021-04-24 17:18 | NUR ---
SHIFT SUMMARY NO ACUTE CHANGES THIS SHIFT. PT HAS REMAINED AWAKE FOR MOST OF THE SHIFT. PT CONTINUES TO TRACK WHEN IN THE ROOM, BUT IS NON VERBAL. PT MOANS OUT AT TIMES. PT REMAINS ON 4L O2 NC. VITAL SIGNS STABLE. CENTRAL LINE TO RIJ C/D/I WITH NS INFUSING TKO, HEPARIN AT 18 UNITS/KG/HR, AND D5W AT 200 ML/HR. POWERGLIDE SALINE LOCKED. DOBHOFF IN PLACE WITH TF INFUSING AT GOAL RATE. BIANCHI REMAINS IN PLACE WITH YELLOW URINE OUTPUT NOTED. WOUNDS REMAIN UNCHANGED. WILL CONTINUE TO MONITOR AND REPORT OFF TO ONCOMING RN.
[2021-04-25 04:17] LABS: BASOPHILS ABSOLUTE AUTO 0.01 K/mm3 (0.00-0.23); BASOPHILS PERCENT AUTO 0 % (0-2); EOSINOPHILS ABSOLUTE AUTO 0.01 K/mm3 (0.00-0.68); EOSINOPHILS PERCENT AUTO 0 % (0-6); Hematocrit 36.4 % (37.0-53.0); Hemoglobin 11.4 g/dL (13.5-17.5); IMMATURE GRAN ABSOLUTE AUTO 0.14 K/mm3 (0.00-0.10); IMMATURE GRAN PERCENT AUTO 2 % (0-1); LYMPHOCYTES ABSOLUTE AUTO 0.92 K/mm3 (0.84-5.20); LYMPHOCYTES PERCENT AUTO 10 % (21-46); MONOCYTES ABSOLUTE AUTO 0.43 K/mm3 (0.16-1.47); MONOCYTES PERCENT AUTO 5 % (4-13); Mean Corpuscular HGB Conc 31.3 g/dL (31.5-36.5); Mean Corpuscular Volume 86 fL (80-100); NEUTROPHILS ABSOLUTE AUTO 7.97 K/mm3 (1.96-9.15); NEUTROPHILS PERCENT AUTO 84 % (41-73); Platelet Count 106 K/mm3 (150-400); RDW Coefficient Variation 15.9 % (11.7-14.2); RDW Standard Deviation 50.1 fL (35.1-46.3); Red Blood Cell Count 4.23 M/mm3 (4.30-5.90); White Blood Cell Count 9.48 K/mm3 (4.00-11.30)
[2021-04-25 04:48] LABS: Mean Platelet Volume 13.4 fL (9.1-12.4)
[2021-04-25 04:49] LABS: Bun/Creatinine Ratio 19.7 (12.0-20.0); Calcium, Blood 7.9 mg/dL (8.5-10.1); Creatinine, Blood 1.37 mg/dL (0.60-1.20); Potassium, Blood 3.7 mmol/L (3.5-5.5)
--- NOTE | 2021-04-25 07:20 | NUR ---
SHIFT SUMMARY PATIENT REMAINED ON 6L NC THROUGHOUT SHIFT WITH SPO2 >90%. HE WAS ABLE TO NOD "YES/NO" TO QUESTIONS AND MOAN TO MAKE NEEDS KNOWN. PATIENT IS ABLE TO MOVE RIGHT ARM, BUT HAD LEFT SIDE DEFICIT FROM PAST CVA. HEPARIN GTT WAS INCREASED FROM 18UNITS/KG/HR TO 19UNITS/KG/HR PER PHARMACY. PATIENT REMAINED ON LOW SLIDING SCALE AND REQUIRED COVERAGE WITH 1 UNIT THEN 2 UNITS. NO OTHER MAJOR CHANGES THROUGHOUT SHIFT.
--- NOTE | 2021-04-25 09:52 | NUR ---
Provider visit Dr. Cerna in to see patient. Updated on patients neuro status. Pt opened eyes once with sternal rub but unable to follow commands or track. Provider states he will speak with family in regards to comfort care. VSS.
--- NOTE | 2021-04-25 13:48 | NUR ---
Pt to CT VIA BED. Remains on 6 L HIGH FLOW NC.
--- NOTE | 2021-04-25 14:33 | NUR ---
Per pt's nurse, today it took a sternal rub to get pt to open his eyes. She states he is not tracking today, and does not appear to be able to follow even basic one step commands. He has a dobhof in place for medication and nutrition. Dr. Cerna requests I call family today with an update on patient''s overal status, and find out where they are in terms of life sustaining treatment vs comfort care. I placed call to pt's son Chavo, and ended up speaking with both Chavo and Joshua. They both agree their father would not enjoy a life without eating or drinking, or a life in which he was confined to bed, with no meaningful movement or talking. They state they plan to wait another "couple days" before making any final decision, to see if his condition remains the same.
--- NOTE | 2021-04-25 18:43 | NUR ---
Shift Summary Pt opens eyes spontanously and tracking. Moves lower extrems but unable to follow commands. Grimaces during oral care. Dr. Cerna back in to see patient earlier in shift for physical assessment. No new orders recieved. Will wait another day to see how patient does prior to disucssing comfort care with family. Remains on 6 L via high flow NC, SPO2 > 92%. HR 100-120'S. BP stable. Will report to oncoming shift.
--- NOTE | 2021-04-26 06:20 | NUR ---
SHIFT SUMMARY PATIENT REMAINED ON 5LPM O2 VIA NC TO [facility] SPO2 ABOVE 90%. THROUGHOUT THE SHIFT HE WOULD RUB HIS HEAD ON HIS PILLOW TO THE RIGHT CAUSING THE NC TO FALL OUT OF HIS NARES; THUS MAKING HIM DESAT TO THE HIGH 80'S. TAPE APPLIED TO NC TO KEEP IN PLACE. CL DRESSING CHANGED THIS SHIFT DUE TO ORIGINAL DRESSING NOT INTACT. NO OTHER MAJOR CHANGES THIS SHIFT. WILL CONTINUE TO MONITOR UNTIL HANDOFF TO ONCOMING RN.
--- NOTE | 2021-04-26 20:01 | NUR ---
SHIFT SUMMARY PT IS A/O X2; PT ABLE TO NOD "YES/NO." PT BP HYPERTENSIVE T/O SHIFT; TREATED PER EMAR. O2 SATS >92 ON HFNC @ 6L. HR RANGED 89-133 T/O SHIFT. BIANCHI IN PLACE DRAINING TO GRAVITY. PT WAS NON-VERBAL T/O SHIFT BUT WOULD TRACK SOUNDS WITH EYES. DOBHOFF IN PLACE INFUSING PER EMAR.
[2021-04-27 03:52] LABS: Hemoglobin 12.8 g/dL (13.5-17.5); Mean Corpuscular HGB 27.4 pg (26.0-34.0); Mean Corpuscular HGB Conc 31.2 g/dL (31.5-36.5); Mean Corpuscular Volume 88 fL (80-100); NRBC ABSOLUTE 0.09 K/mm3 (0.00-0.02); Platelet Count 175 K/mm3 (150-400); RDW Coefficient Variation 15.7 % (11.7-14.2); RDW Standard Deviation 49.7 fL (35.1-46.3); Red Blood Cell Count 4.68 M/mm3 (4.30-5.90); White Blood Cell Count 9.15 K/mm3 (4.00-11.30)
[2021-04-27 04:07] LABS: Albumin, Blood 2.9 g/dL (3.4-5.0); Anion Gap 7 mmol/L (6-16); Blood Urea Nitrogen 37 mg/dL (8-24); Bun/Creatinine Ratio 23.3 (12.0-20.0); CO2, Blood 25 mmol/L (21-32); Calcium, Blood 8.9 mg/dL (8.5-10.1); Chloride, Blood 119 mmol/L (98-108); Creatinine, Blood 1.59 mg/dL (0.60-1.20); Glomerular Filtration Rate 44 (60-); Glucose, Blood 276 mg/dL (70-99); Phosphorus, Blood 3.9 mg/dL (2.5-4.9); Potassium, Blood 4.4 mmol/L (3.5-5.5); Sodium, Blood 151 mmol/L (136-145)
[2021-04-27 04:30] LABS: Mean Platelet Volume 13.4 fL (9.1-12.4)
--- NOTE | 2021-04-27 07:27 | NUR ---
SHIFT SUMMARY PATIENT SLEPT THROUGHOUT SHIFT. AT INITIAL ASSESSMENT, PATIENT WOULD OPEN EYES TO VERBAL STIMULI; AT SUBSEQUENT REASSESSMENTS PATIENT WOULD NOT OPEN EYES OR RESPOND TO VERBAL STIMULI. PATIENT REMAINED ON 6L NC WITH SPO2 96-98%; HR AND BP WERE ELEVATED, SO METOPROLOL 5MG IV GIVEN WITH RESPONSE OF HR DECREASING FROM 130'S TO 110'S. FEVER ALSO PRESENTED, TYLENOL 650MG GIVEN PER TUBE. NO OTHER MAJOR CHANGES DURING SHIFT.
--- NOTE | 2021-04-27 11:13 | NUR ---
MYRNA DURING MED PASS AROUND 0800, THIS RN AND KELSEY RN NOTICED THAT THE PT HAD WHAT APPEARED TO BE AN ST ELEVATION. CHARGE NURSE KENYATTA WAS NOTIFIED. EKG WAS DONE. DR UMANZOR WAS NOTIFIED AT 1040 OF THE EKG AND THE PT'S VS'S.
--- NOTE | 2021-04-27 13:53 | NUR ---
UPDATE PT CORE TEMP 105.0F. INFORMED CHARGE NURSE KENYATTA HOGAN. INSTRUCTED TO PLACE ICE PACKS PLACED UNDER ARM PITS, BETWEEN LEGS, AND COOL WASH CLOTH BEHIND NECK AND ON HEAD. WILL CONTINUE TO MONITOR.
--- NOTE | 2021-04-27 17:45 | NUR ---
SHIFT SUMMARY PT NOT ABLE TO BE ROUSED, DID NOT AWAKEN DURING ASSEMENT OR ATTENDS CHANGE. PT TEMP WAS 104.7 F AND PULSE OF 137 AT THE BEGINNING OF THE SHIFT; TREATED PER EMAR. TEMP INCREASED TO 105.0 F; PALLIATIVE NURSE AND DR UMANZOR NOTIFIED. PT FAMILY MOVE PT TO COMFORT CARE. FAMILY VISITED PT.
--- NOTE | 2021-04-27 18:48 | NUR ---
UPDATE PT DOBHOFF TURNED OFF AND TUBING REMOVED FROM PT AT 1630. KVO IV STOPPED AND IV SALINE LOCKED. NEW BAGS OF ICE PLACED UNDER PT ARMPITS AND BETWEEN LEGS AND NEW COOL WASH CLOTH ON FOREHEAD. NC STILL IN PLACE AT 6L.
--- NOTE | 2021-04-27 20:00 | NUR ---
CARE ASSUMPTION / COMFORT CARE PT LAYING IN BED W/ PILLOWS SUPPORTING EXTREMITIES FOR COMFORT. PT SLEEPING, BREATHING SLOW & IRREGULAR BUT NONLABORED. 6L NC REMAINS IN PLACE FOR COMFORT. PT DOES NOT WAKE UPON ENTRY TO OR VERBAL STIMULI. BIANCHI CATH PATENT & DRAINING. WILL CONTINUE TO MONITOR & PROVIDE CARE FOR COMFORT.
--- NOTE | 2021-04-27 20:18 | NUR ---
Multiple visits today and family confrence. pt declined today and spiked a temp. notified family today of need to start comfort care. Family in to visit. and pt placed on comfort. NG removed and roxinol given pt showing noverbal cues of muscle tightness and labored breathing. after medication pt shoulders not tight and breathing more even.
--- NOTE | 2021-04-28 00:04 | NUR ---
transfer report from rn wound Elisha on PT with covid 19 DNR status with multiple medical problems changed to Comfort care today per RN report. Await transfer will be in special droplet isolation related to covid 19.
--- NOTE | 2021-04-28 00:09 | NUR ---
TRANSFER TO MEDICAL REPORT GIVEN TO ACCEPTING MEDICAL FLOOR RN @ THIS TIME. PT TO NOW BE TAKEN TO RM 302 VIA BED BY 2 PCT's. PT TRANSFERING W/ 6L HI-MUNIR NC IN PLACE.
--- NOTE | 2021-04-28 03:34 | NUR ---
60 year old Male Covid 19 positive with multiple medical problems transferred from PCU on Comfort Care this shift & he is dusky cool & not responding. PT reportedly from [facility]. Family listed as Son & DTR. PT on 6 l high flow oxygen. In special droplet contact for covid 19, versus airborne which was DC.
--- NOTE | 2021-04-28 05:39 | NUR ---
PT with 2nd RN Odalys no resp no pulse 0500 AM . DTR Yesi & Son Chavo notified of PT's passing comfortably. Son chose [facility].
== END 2021-04-28 05:00 | DRG 871 ==
LOC: ER 14:14 → MEDS 21:59 → PCU 04-20 19:50 → MEDS 04-28 00:33
PROVIDERS: Emergency Medicine; Family Medicine; Internal Medicine; Student in an Organized Health Care Education/Training Program; ADMIT Internal Medicine
PROC: 5A09357 Assistance with Respiratory Ventilation, Less than 24 Consecutive Hours, Continuous Positive Airway Pressure (ICD-10-PCS; 2021-04-19)
PROC: 8E0ZXY6 Isolation (ICD-10-PCS; 2021-04-19)
PROC: 3E0333Z Introduction of Anti-inflammatory into Peripheral Vein, Percutaneous Approach (ICD-10-PCS; principal; 2021-04-21)
PROC: 02HV33Z Insertion of Infusion Device into Superior Vena Cava, Percutaneous Approach (ICD-10-PCS; 2021-04-21)
PROC: 3E033XZ Introduction of Vasopressor into Peripheral Vein, Percutaneous Approach (ICD-10-PCS; 2021-04-21)
DX: A41.89 Other specified sepsis (principal); R65.21 Severe sepsis with septic shock; U07.1 COVID-19; J12.82 Pneumonia due to coronavirus disease 2019; J96.01 Acute respiratory failure with hypoxia; I26.99 Other pulmonary embolism without acute cor pulmonale; G92 Toxic encephalopathy; N17.9 Acute kidney failure, unspecified; E87.0 Hyperosmolality and hypernatremia; I69.354 Hemiplegia and hemiparesis following cerebral infarction affecting left non-dominant side; F01.51 Vascular dementia, unspecified severity, with behavioral disturbance; I69.351 Hemiplegia and hemiparesis following cerebral infarction affecting right dominant side; G82.20 Paraplegia, unspecified; I42.2 Other hypertrophic cardiomyopathy; Z51.5 Encounter for palliative care; Z66 Do not resuscitate; N18.30 Chronic kidney disease, stage 3 unspecified; G40.909 Epilepsy, unspecified, not intractable, without status epilepticus; I48.0 Paroxysmal atrial fibrillation; Z99.3 Dependence on wheelchair; Z98.890 Other specified postprocedural states; Z79.899 Other long term (current) drug therapy; E03.9 Hypothyroidism, unspecified; G47.30 Sleep apnea, unspecified; Z79.82 Long term (current) use of aspirin; Z88.0 Allergy status to penicillin; Z88.8 Allergy status to other drugs, medicaments and biological substances; E86.0 Dehydration; E11.22 Type 2 diabetes mellitus with diabetic chronic kidney disease; I12.9 Hypertensive chronic kidney disease with stage 1 through stage 4 chronic kidney disease, or unspecified chronic kidney disease; Z79.4 Long term (current) use of insulin; Z79.02 Long term (current) use of antithrombotics/antiplatelets; F32.9 Major depressive disorder, single episode, unspecified; Z78.1 Physical restraint status; E78.5 Hyperlipidemia, unspecified; N40.0 Benign prostatic hyperplasia without lower urinary tract symptoms; R77.8 Other specified abnormalities of plasma proteins; E83.39 Other disorders of phosphorus metabolism; E11.65 Type 2 diabetes mellitus with hyperglycemia
CPT/HCPCS: 36415; 36556; 36600; 51701; 51702; 70450; 71045; 76770; 80048; 80053; 80069; 81001; 82803; 82947; 83036; 83605; 83735; 83880; 84132; 84145; 84439; 84443; 84484; 85025; 85027; 85379; 85730; 87040; 87086; 92526; 92610; 93005; 93010; 93970; 94660; 94762; 99285-25; A9270; C1751; J0360; J0456; J0696; J1100; J1644; J1650; J1815; J1953; J2270; J7030; J7050; J7060; J7070; J7120; U0004